=== PATIENT | female | born 1955 | race Caucasian/White ===

== ENCOUNTER 2023-08-27 21:18 | Inpatient (IN) | payer MEDICARE, MEDICAID, SELFPAY ==
--- NOTE | ~2023-08-27 | CT_ITS ---
EXAMINATION: CTA brain carotid DATE: 08/27/2023 21:40 INDICATION: Left facial weakness. TECHNIQUE: Computed tomographic angiography (CTA) of the head was performed with 100 mL Omnipaque-350 intravenous contrast. CTA of the neck was performed with intravenous contrast. Automated exposure co ntrol and iterative reconstruction technique were employed. The dose-length product was 1164.79 mGy-c m. Maximum intensity projection and volume rendered 3D-reconstructions were created by the [facility] st on a separate workstation. COMPARISON: Head CT 08/27/2023 FINDINGS: HEAD CTA: There are scattered areas of low attenuation in the cerebral white matter. There is an old lacunar infarct in the sweta. There is no intracranial hemorrhage, acute infarction, or abnormal intra cranial mass lesion. The ventricles are normal in size. The orbits are normal. The mastoid air cells are normal. The paranasal sinuses are clear. The vertebral arteries are codominant. There is no signi ficant stenosis of basilar artery or the posterior cerebral arteries. The posterior communicating art eries are normal. There is no significant stenosis of the intracranial internal carotid arteries or a nterior or middle cerebral arteries. Anterior communicating artery is normal. There is no aneurysm. NECK CTA: There are changes of right hemithyroidectomy. There are no pathologically enlarged lymph no karie. There is no significant stenosis of the vertebral arteries. There is plaque in the proximal inte rnal carotid arteries. There is 0% stenosis of the proximal right internal carotid artery relative to normal distal artery lumen diameter (NASCET criteria). There is 0% stenosis of the proximal left int ernal carotid artery relative to normal distal artery lumen diameter. There is severe cervical spondy losis. IMPRESSION: 1. Extensive nonspecific cerebral white matter disease, which likely represents chronic small vessel ischemic disease. 2. Old lacunar infarct in the sweta. 3. No aneurysm or significant intracranial arterial stenosis. 4. 0% stenosis of the proximal internal carotid arteries relative to normal distal artery lumen diame ters (NASCET criteria). Reviewed, dictated and finalized at location E. IMPRESSION: 1. Extensive nonspecific cerebral white matter disease, which likely represents chronic small vessel ischemic disease. 2. Old lacunar infarct in the sweta. 3. No aneurysm or significant intracranial arterial stenosis. 4. 0% stenosis of the proximal internal carotid arteries relative to normal dis milan artery lumen diameters (NASCET criteria).
--- NOTE | ~2023-08-27 | CT_ITS ---
EXAMINATION: CT brain wo con DATE: 08/27/2023 21:28 INDICATION: Left facial weakness. Confusion. TECHNIQUE: Computed tomography (CT) of the head was performed without intravenous contrast. The mA wa s adjusted according to patient size. Iterative reconstruction technique was employed. The dose-lengt h product was 681.00 mGy-cm. COMPARISON: None FINDINGS: There are scattered areas of low attenuation in the cerebral white matter. There is an old lacunar infarct in the sweta. There is no intracranial hemorrhage, acute infarction, or abnormal intra cranial mass lesion. The ventricles are normal in size. The orbits are normal. There is mild mucosal thickening in the paranasal sinuses. There is a small right mastoid effusion. IMPRESSION: 1. Extensive nonspecific cerebral white matter disease, which likely represents chronic small vessel ischemic disease. 2. Old lacunar infarct in the sweta. Reviewed, dictated and finalized at location E.
--- NOTE | ~2023-08-27 | XR_ITS ---
EXAMINATION: XR chest 1V portable DATE: 08/27/2023 21:54 INDICATION: Facial weakness. TECHNIQUE: A single frontal view of the chest was obtained. COMPARISON: None. FINDINGS: There is no pneumonia, pleural effusion, or pneumothorax. The heart size is normal. An elec tronic implant overlies left chest. 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 IMPRESSION: 1. No acute cardiopulmonary disease. Reviewed, dictated and finalized at location E.
--- NOTE | 2023-08-27 21:20 | ED.NEUROSD ---
HPI - Neuro Symptoms/Deficit General Chief Complaint: Suspected CVA Stated Complaint: r/o cva Time Seen by Provider: 08/27/23 21:20 History of Present Illness HPI Narrative: Patient is a 68-year-old female with a history of hypertension, DAISY, diabetes, TIA presenting as a stroke alert. She is coming from a nursing facility. They stated that she started to act abnormally approximately 4 hours ago. The symptoms worsened until about 90 minutes ago when they noticed a left-sided facial droop so they called EMS. Patient continues to have mild left-sided facial droop but otherwise denies complaints. No new numbness or weakness. States that her speech sounds normal. Her only complaint is feeling weak all over her entire body. Related Data Home Medications Medication Instructions Recorded Confirmed acetaminophen 325 mg tablet 650 mg PO Q6H PRN Headache 08/28/23 09/03/23 aspirin 81 mg tablet,delayed 81 mg PO DAILY 08/28/23 09/03/23 release (Adult Low Dose Aspirin) atorvastatin 10 mg tablet 10 mg PO HS 08/28/23 09/03/23 cholecalciferol (vitamin D3) 25 25 mcg PO DAILY 08/28/23 09/03/23 mcg (1,000 unit) tablet exenatide 10 mcg/dose(250 10 mcg subcut BID 08/28/23 09/03/23 mcg/mL)2.4 mL subcutaneous pen injector (Taodyne) furosemide 20 mg tablet 20 mg PO DAILY 08/28/23 09/03/23 levothyroxine 75 mcg tablet 75 mcg PO DAILY 08/28/23 09/03/23 lisinopril 20 mg tablet 20 mg PO DAILY 08/28/23 09/03/23 melatonin 5 mg tablet 5 mg PO HS 08/28/23 09/03/23 metformin 500 mg tablet,extended 500 mg PO DAILY 08/28/23 09/03/23 release 24 hr polyethylene glycol 3350 17 17 g PO DAILY 08/28/23 09/03/23 gram/dose oral powder (Miralax) Allergies Allergy/AdvReac Type Severity Reaction Status Date / Time tramadol Allergy Other Verified 08/27/23 21:55 Review of Systems Review of Systems: ROS unobtainable: Yes unobtainable due to medical condition and other (Due to acuity of condition) PMFSH Family History Family History Other Unknown family medical history Social History Social History Smoking status: Never smoker Alcohol intake: never Substance use: never Lack of Transportation: No Lack of Food: Never True Current Housing: I Have Housing Concerned About Future Housing: No Difficulty Paying Gas/Electric Bills: No Difficulty Paying for Meds: No Currently Unemployed: No Education: High School Diploma/GED Difficulty w/ Childcare or Family Care: No Spiritual care concerns: No Exam Narrative: GENERAL: Chronically ill-appearing, no acute distress HEAD: Normocephalic, atraumatic. EYES: PERRLA and EOMI. ENT: Slight left-sided facial droop noted NECK: Supple. CHEST: No respiratory distress. HEART: Regular rate and rhythm ABDOMEN: Soft, nontender, nondistended EXTREMITIES: Right upper extremity ROM limited secondary to prior rotator cuff injury SKIN: Warm, dry NEURO: Mild left-sided facial droop noted though smiling appears intact, 5 out of 5 strength in left upper extremity and bilateral lower extremities; right upper extremity strength unable to be assessed due to rotator cuff injury which is old; no pronator drift, no dysarthria or aphasia PSYCH: Normal mood and affect. Course Vital Signs Vital signs: Vital Signs Temperature 98 F 08/27/23 21:44 Pulse Rate 104 H 08/27/23 21:44 Respiratory Rate 18 08/27/23 21:44 Oxygen Delivery Room Air 08/27/23 21:44 Temperature 97.0 F L 08/30/23 14:00 Pulse Rate 64 08/30/23 16:00 Respiratory Rate 18 08/30/23 14:00 Blood Pressure 155/77 H 08/30/23 14:00 Pulse Oximetry 96 08/30/23 14:00 Oxygen Delivery Room Air 08/30/23 09:10 MDM - Neuro Symptoms/Deficit MDM Narrative Medical decision making narrative: Patient is a 68-year-old female presenting as a stroke alert due to left-sided facial droop. Vitals st
--- NOTE | 2023-08-27 21:22 | ECG_ITS ---
Measurements Intervals [place] Rate: 100 P: 48 OK: 161 QRS: -23 QRSD: 86 T: 33 QT: 341 QTc: 442 Interpretive Statements SINUS TACHYCARDIA BORDERLINE LEFT AXIS DEVIATION [QRS AXIS < -20] BORDERLINE ECG NO PREVIOUS ECG AVAILABLE FOR COMPARISON Electronically Signed On 08-28-2023 17:11:41 CDT by Daniel Cary M.D.
[2023-08-27 21:44] VITALS: PULSE 104; RESP 18; TEMP 36.6
[2023-08-27 21:45] LABS: Estimated Glomerular Filt Rate > 60
[2023-08-27 21:45] LABS: Basophils Percent Auto 0.1 % (0.2-1.2); Eosinophils Absolute Auto 0.1 K/mm3 (0-0.3); Eosinophils Percent Auto 0.7 % (0-4.4); Hematocrit 36.6 % (37.0-47.0); Hemoglobin 11.4 g/dL (12.0-15.0); Immature Granulocyte Absolute 0.06 K/mm3 (0.00-0.031); Immature Granulocyte Percent A 0.4 % (0-0.5); Lymphocytes Absolute Auto 0.76 K/mm3 (0.9-3.2); Lymphocytes Percent Auto 5.3 % (18.3-44.2); Mean Corpuscular HGB Conc 31.1 g/dl (32-36); Mean Corpuscular Volume 86.7 fl (80-100); Mean Platelet Volume 9.8 fl (7.4-10.4); Monocytes Absolute Auto 0.6 K/mm3 (0.1-0.6); Monocytes Percent Auto 4.2 % (2.6-8.5); Neutrophils Absolute Auto 12.7 K/mm3 (1.3-6.7); Neutrophils Percent Auto 89.3 % (45.5-73.1); Platelet Count Result 243 k/mm3 (150-375); Red Blood Count 4.22 M/mm3 (4.2-5.4); Red Cell Distribution Width 13.5 % (11.5-14.5); White Blood Count 14.3 K/mm3 (4.5-10.0)
[2023-08-27 21:47] VITALS: PULSE 105
[2023-08-27 21:55] LABS: Partial Thromboplastin Time 24.9 SECONDS (22.3-36.8); Prothrombin Time 13.8 Seconds (11.1-14.7)
[2023-08-27 21:57] VITALS: PULSE 104; RESP 23; O2SAT 97
[2023-08-27 22:00] LABS: Alanine Aminotransferase 15 U/L (6-35); Albumin Level 4.1 g/dL (3.5-5.1); Alkaline Phosphatase 127 U/L (38-126); Anion Gap 7 mmol/L (8-16); Aspartate Amino Transferase 28 U/L (14-36); Bilirubin,Total 0.7 mg/dL (0.2-1.3); Blood Urea Nitrogen 25 mg/dL (7-17); Calcium 9.2 mg/dL (8.4-10.2); Carbon Dioxide 23 mmol/L (22-30); Chloride 104 mmol/L (98-107); Estimated CRCL calculation 86 ml/min; Estimated Glomerular Filt Rate > 60; Glucose 243 mg/dL (65-110); Lipase 83 U/L (23-300); Magnesium 1.8 mg/dL (1.6-2.3); Potassium 4.3 mmol/L (3.4-5.0); Sodium 134 mmol/L (137-145)
[2023-08-27 22:07] LABS: Troponin I < 0.012 ng/mL (0.000-0.034)
[2023-08-27 22:16] LABS: Appearance Urine Cloudy (Clear); Bacteria Urine 4+ /hpf; Bilirubin Urine Negative (Negative); Blood Urine Negative (Negative); Color Urine Yellow (Yellow); Glucose Urine UA Negative (Negative); Ketones Urine Trace mg/dL (Negative); Leukocyte Esterase Ur 1+ LEU/UL (Negative); Nitrate Urine Positive (Negative); Non Pathogenic Casts 0-2; Protein Urine Negative (Negative); RBC Urine 0-2 /hpf (0-2); Specific Grav Ur 1.033 (1.001-1.035); Squamous Epithelial Cell Urine None seen /hpf (Few); WBC Urine 21-50 /hpf; pH Urine 5.5 (5.0-9.0)
[2023-08-27 22:21] LABS: Add Urine Microscopic? YES
[2023-08-27 22:36] LABS: Influenza A QL RT-PCR Negative (Negative); Influenza B QL RT-PCR Negative (Negative); SARS-CoV-2 RNA PCR Negative (Negative)
[2023-08-27] MEDS: SODIUM CHLORIDE 0.9% IV 1,000 ML 999 ML IV CONT (22:56)
[2023-08-27 22:58] VITALS: BP 163/75; PULSE 93; RESP 22; O2SAT 100
[2023-08-27] MEDS: cefTRIAXone 2 GM/NS 100 ML 2 GM/100 ML BAG IVPB (23:13)
--- NOTE | 2023-08-27 23:14 | PC.NURSE ---
Unable to retrieve patient's blood for cultures. Notified Dr. Enriquez EDP who advised to cancel the order.
[2023-08-27] MEDS: ACETAMINOPHEN 500 MG TABLET 1000 MG PO (23:15)
[2023-08-27 23:54] VITALS: BP 154/74; PULSE 87; RESP 15; TEMP 36.6; O2SAT 99
[2023-08-28] VITALS (10 sets, daily range): BP systolic 109–144; BP diastolic 45–72; PULSE 64–92; RESP 14–18; TEMP 36.2–36.6; O2SAT 95–100
--- NOTE | 2023-08-28 00:31 | ADMGEN ---
This patient, Chika Thompson, was admitted to [facility] Surg Room 332-01. Patient/family oriented to hospital policies and general routines including ID bracelet, bed and alarms, visiting hours, pain management, procedures, bathroom and other care routines, personal items, smoking policy, room service/diet, and visiting hours. Information on how to activate the Rapid Response Team has been discussed. Patient/Family are encouraged to report perceived risks to care and to ask questions if they do not understand what they are told or what they should do.
[2023-08-28 01:21] LABS: Troponin I < 0.012 ng/mL (0.000-0.034)
[2023-08-28 04:43] LABS: Troponin I < 0.012 ng/mL (0.000-0.034)
[2023-08-28] MEDS: ASPIRIN 81 MG ENTERIC TABLET PO (10:52)
[2023-08-28] MEDS: CHOLECALCIFEROL 1,000 UNITS TABLET 1000 UNITS PO (10:52)
[2023-08-28] MEDS: LEVOTHYROXINE SODIUM 75 MCG TABLET PO (10:53)
[2023-08-28] MEDS: metFORMIN HCL XR 500 MG TAB.SR.24H PO (10:53)
[2023-08-28] MEDS: FUROSEMIDE 20 MG TABLET PO (10:53)
[2023-08-28] MEDS: lisinopriL 20 MG TABLET PO (10:53)
--- NOTE | 2023-08-28 10:56 | PM.IMHP ---
H&P: HPI History of Present Illness Date/Time: 08/28/23 10:56 Chief Complaint: Patient is a 68-year-old female with a history of hypertension, DAISY, diabetes, TIA presenting as a stroke alert.? She is coming from a nursing facility.? They stated that she started to act abnormally approximately 4 hours ago.? The symptoms worsened until about 90 minutes ago when they noticed a left-sided facial droop so they called EMS.? Patient continues to have mild left-sided facial droop but otherwise denies complaints.? No new numbness or weakness.? States that her speech sounds normal.? Her only complaint is feeling weak all over her entire body. Review of Systems Review of Systems: ROS unobtainable: Yes unobtainable due to medical condition and other (Due to acuity of condition) [facility] Family History Family History Other Unknown family medical history Social History Social History Smoking status: Never smoker Alcohol intake: never Substance use: never Lack of Transportation: No Lack of Food: Never True Current Housing: I Have Housing Concerned About Future Housing: No Difficulty Paying Gas/Electric Bills: No Difficulty Paying for Meds: No Currently Unemployed: No Education: High School Diploma/GED Difficulty w/ Childcare or Family Care: No Spiritual care concerns: No Meds Home Medications and Allergies Home Medications Medication Instructions Recorded Confirmed Type acetaminophen 325 mg tablet 650 mg PO PRN PRN Headache 08/28/23 08/28/23 History aspirin 81 mg tablet,delayed 81 mg PO DAILY 08/28/23 08/28/23 History release (Adult Low Dose Aspirin) atorvastatin 10 mg tablet 10 mg PO HS 08/28/23 08/28/23 History cholecalciferol (vitamin D3) 25 25 mcg PO DAILY 08/28/23 08/28/23 History mcg (1,000 unit) tablet exenatide 10 mcg/dose(250 10 mcg subcut BID 08/28/23 08/28/23 History mcg/mL)2.4 mL subcutaneous pen injector (Byetta) furosemide 20 mg tablet 20 mg PO DAILY 08/28/23 08/28/23 History levothyroxine 75 mcg tablet 75 mcg PO DAILY 08/28/23 08/28/23 History lisinopril 20 mg tablet 20 mg PO DAILY 08/28/23 08/28/23 History melatonin 5 mg tablet 5 mg PO HS 08/28/23 08/28/23 History metformin 500 mg tablet,extended 500 mg PO DAILY 08/28/23 08/28/23 History release 24 hr polyethylene glycol 3350 17 17 g PO DAILY 08/28/23 08/28/23 History gram/dose oral powder (Miralax) Allergies Allergy/AdvReac Type Severity Reaction Status Date / Time tramadol Allergy Other Verified 08/27/23 21:55 Vital Signs Vital Signs - 24 hr 08/27/23 21:44 08/27/23 21:47 08/27/23 21:57 Temperature 98 F Pulse Rate 104 H 105 H 104 H Respiratory Rate 18 23 H Blood Pressure Pulse Oximetry 97 Oxygen Delivery Room Air 08/27/23 22:58 08/27/23 23:54 08/28/23 00:30 Temperature 98 F 97.9 F Pulse Rate 93 87 92 Respiratory Rate 22 H 15 14 Blood Pressure 163/75 H 154/74 H 144/72 H Pulse Oximetry 100 99 100 Oxygen Delivery 08/28/23 04:00 08/28/23 06:00 08/28/23 08:09 Temperature 97.2 F L Pulse Rate 70 74 Respiratory Rate 14 Blood Pressure 109/45 L Pulse Oximetry 98 95 Oxygen Delivery Room Air Exam Narrative: GENERAL: Chronically ill-appearing, no acute distress HEAD: Normocephalic, atraumatic. EYES: PERRLA and EOMI. ENT: Slight left-sided facial droop noted NECK: Supple. CHEST: No respiratory distress. HEART: Regular rate and rhythm ABDOMEN: Soft, nontender, nondistended EXTREMITIES: Right upper extremity ROM limited secondary to prior rotator cuff injury SKIN: Warm, dry NEURO: Mild left-sided facial droop noted though smiling appears intact, 5 out of 5 strength in left upper extremity and bilateral lower extremities; right upper extremity strength unable to be assessed due to rotator cuff injury which is old; no pronator drift, no dysarthria or aph
[2023-08-28] MEDS: cefTRIAXone 2 GM/NS 100 ML 2 GM/100 ML BAG IVPB (21:17)
[2023-08-28] MEDS: ATORVASTATIN 10 MG TABLET PO (21:18)
[2023-08-28] MEDS: MELATONIN 5 MG TABLET PO (21:18)
[2023-08-29] VITALS (9 sets, daily range): BP systolic 110–144; BP diastolic 47–62; PULSE 62–72; RESP 16–20; TEMP 36.2–37.7; O2SAT 95–99
[2023-08-29] MEDS: LEVOTHYROXINE SODIUM 75 MCG TABLET PO (06:01)
[2023-08-29] MEDS: ASPIRIN 81 MG ENTERIC TABLET PO (09:03)
[2023-08-29] MEDS: lisinopriL 20 MG TABLET PO (09:03)
[2023-08-29] MEDS: CHOLECALCIFEROL 1,000 UNITS TABLET 1000 UNITS PO (09:03)
[2023-08-29] MEDS: metFORMIN HCL XR 500 MG TAB.SR.24H PO (09:03)
[2023-08-29] MEDS: FUROSEMIDE 20 MG TABLET PO (09:03)
[2023-08-29] MEDS: ACETAMINOPHEN 325 MG TABLET 650 MG PO (11:39)
--- NOTE | 2023-08-29 11:46 | PM.IMPN ---
Progress Note: A&P Assessment and Plan (1) Debility: Code(s): R53.81 - Other malaise Status: Acute (2) Arthritis of knee: Code(s): M17.10 - Unilateral primary osteoarthritis, unspecified knee Status: Acute (3) Diabetes mellitus: Qualifiers: Diabetes mellitus type: type 2 Diabetes mellitus termite helper insulin use: without termite helper use Diabetes mellitus complication status: with neurologic complications Diabetes mellitus complication detail: with polyneuropathy Qualified Code(s): E11.42 - Type 2 diabetes mellitus with diabetic polyneuropathy Code(s): E11.9 - Type 2 diabetes mellitus without complications Status: Acute (4) Hypothyroidism (acquired): Code(s): E03.9 - Hypothyroidism, unspecified Status: Acute (5) DAISY on CPAP: Code(s): G47.33 - Obstructive sleep apnea (adult) (pediatric) Status: Acute (6) UTI (urinary tract infection): Code(s): N39.0 - Urinary tract infection, site not specified Status: Acute Assessment and Plan: abx, feeling better already Subjective Date/time seen: 08/29/23 11:46 Interval history: No complaints Exam Narrative: GENERAL: Chronically ill-appearing, no acute distress HEAD: Normocephalic, atraumatic. EYES: PERRLA and EOMI. ENT: Slight left-sided facial droop noted NECK: Supple. CHEST: No respiratory distress. HEART: Regular rate and rhythm ABDOMEN: Soft, nontender, nondistended EXTREMITIES: Right upper extremity ROM limited secondary to prior rotator cuff injury SKIN: Warm, dry NEURO: Mild left-sided facial droop noted though smiling appears intact, 5 out of 5 strength in left upper extremity and bilateral lower extremities; right upper extremity strength unable to be assessed due to rotator cuff injury which is old; no pronator drift, no dysarthria or aphasia PSYCH: Normal mood and affect. Objective Data Vital Signs Vital Signs: Vital Signs - 24 hr 08/28/23 14:00 08/28/23 15:47 08/28/23 12:00 Temperature 97.2 F L Pulse Rate 72 82 Respiratory Rate 18 Blood Pressure 129/55 L Pulse Oximetry 99 Oxygen Delivery CPAP 08/28/23 16:00 08/28/23 22:00 08/28/23 20:15 Temperature 97.5 F L Pulse Rate 64 75 72 Respiratory Rate 16 Blood Pressure 143/64 H Pulse Oximetry 98 Oxygen Delivery 08/28/23 20:15 08/29/23 00:00 08/28/23 22:10 Temperature Pulse Rate 75 72 Respiratory Rate 16 Blood Pressure Pulse Oximetry 98 Oxygen Delivery CPAP CPAP 08/29/23 03:43 08/29/23 04:00 08/29/23 06:00 Temperature 97.2 F L Pulse Rate 70 72 Respiratory Rate 16 Blood Pressure 110/47 L Pulse Oximetry 95 Oxygen Delivery CPAP Intake/Output Intake/Output: Intake & Output 08/26/23 08/27/23 08/28/23 08/29/23 23:59 23:59 23:59 23:59 Intake Total 1100 1718 150 Output Total 1100 400 Balance 1100 618 -250 Meds/Results Medications: Active Medications Generic Name Dose Route Start Last Admin Trade Name Freq PRN Reason Stop Dose Admin Acetaminophen 650 mg 08/29/23 11:14 08/29/23 11:39 Acetaminophen 325 Mg Tablet PO 650 mg Q6H PRN Administration Mild Pain (1-3) or Fever Aspirin 81 mg 08/28/23 09:00 08/29/23 09:03 Aspirin 81 Mg Enteric Tablet PO 81 mg DAILY MARY Administration Atorvastatin Calcium 10 mg 08/28/23 21:00 08/28/23 21:18 Atorvastatin 10 Mg Tablet PO 10 mg HS MARY Administration Furosemide 20 mg 08/28/23 09:00 08/29/23 09:03 Furosemide 20 Mg Tablet PO 20 mg DAILY MARY Administration Ceftriaxone Sodium 2 gm in 100 mls @ 200 mls/hr 08/28/23 22:00 08/28/23 21:17 Rocephin 2 Gm/Ns 100 Ml IVPB 200 mls/hr Q24H MARY Administration Levothyroxine Sodium 75 mcg 08/28/23 11:30 08/29/23 06:01 Levothyroxine Sodium 75 Mcg Tablet PO 75 mcg DAILY@0630 MARY Administration Lisinopril 20 mg 08/28/23 09:00 08/29/23 09:03 Lisinopril 20 Mg Tablet PO 20 mg DEMI
[2023-08-29] MEDS: ATORVASTATIN 10 MG TABLET PO (21:46)
[2023-08-29] MEDS: MELATONIN 5 MG TABLET PO (21:50)
[2023-08-29] MEDS: cefTRIAXone 2 GM/NS 100 ML 2 GM/100 ML BAG IVPB (21:51)
[2023-08-30] VITALS (8 sets, daily range): BP systolic 132–155; BP diastolic 59–77; PULSE 58–64; RESP 16–18; TEMP 36.1–36.4; O2SAT 95–98
[2023-08-30] MEDS: LEVOTHYROXINE SODIUM 75 MCG TABLET PO (05:46)
[2023-08-30] MEDS: metFORMIN HCL XR 500 MG TAB.SR.24H PO (09:06)
[2023-08-30] MEDS: ACETAMINOPHEN 325 MG TABLET 650 MG PO (09:07)
[2023-08-30] MEDS: lisinopriL 20 MG TABLET PO (09:07)
[2023-08-30] MEDS: FUROSEMIDE 20 MG TABLET PO (09:07)
[2023-08-30] MEDS: ASPIRIN 81 MG ENTERIC TABLET PO (09:08)
[2023-08-30] MEDS: polyethylene glycoL 3350 17 GM POWD.PACK PO (09:08)
[2023-08-30] MEDS: CHOLECALCIFEROL 1,000 UNITS TABLET 1000 UNITS PO (09:08)
--- NOTE | 2023-08-30 12:46 | PM.DS ---
DS: Admitting Diagnosis Discharge Date August 30, 2023 Admitting Diagnosis UTI DS: Discharge Diagnosis Discharge Diagnosis (1) Debility: Code(s): R53.81 - Other malaise Status: Acute (2) Arthritis of knee: Code(s): M17.10 - Unilateral primary osteoarthritis, unspecified knee Status: Acute (3) Diabetes mellitus: Qualifiers: Diabetes mellitus type: type 2 Diabetes mellitus director long term care insulin use: without retirement use Diabetes mellitus complication status: with neurologic complications Diabetes mellitus complication detail: with polyneuropathy Qualified Code(s): E11.42 - Type 2 diabetes mellitus with diabetic polyneuropathy Code(s): E11.9 - Type 2 diabetes mellitus without complications Status: Acute (4) Hypothyroidism (acquired): Code(s): E03.9 - Hypothyroidism, unspecified Status: Acute (5) DAISY on CPAP: Code(s): G47.33 - Obstructive sleep apnea (adult) (pediatric) Status: Acute (6) UTI (urinary tract infection): Code(s): N39.0 - Urinary tract infection, site not specified Status: Acute Assessment and Plan: abx, feeling better already DS: Summary Hospital Course Hospital Course: 68-year-old female came in for altered mental status and UTI. Started on IV antibiotics and improved significantly almost immediately. Doing much better and back to baseline. Oral antibiotics on discharge Time Spent with Patient Time attestation: Total time spent providing and/or coordinating discharge services: Exam Narrative: GENERAL: Chronically ill-appearing, no acute distress HEAD: Normocephalic, atraumatic. EYES: PERRLA and EOMI. ENT: Slight left-sided facial droop noted NECK: Supple. CHEST: No respiratory distress. HEART: Regular rate and rhythm ABDOMEN: Soft, nontender, nondistended EXTREMITIES: Right upper extremity ROM limited secondary to prior rotator cuff injury SKIN: Warm, dry NEURO: Mild left-sided facial droop noted though smiling appears intact, 5 out of 5 strength in left upper extremity and bilateral lower extremities; right upper extremity strength unable to be assessed due to rotator cuff injury which is old; no pronator drift, no dysarthria or aphasia PSYCH: Normal mood and affect. Discharge Plan Discharge Attending physician on discharge: Dillon Sr Discharging Clinician: Dillon Sr Patient Disposition: Home, Self-Care Activity: as tolerated Diet: as tolerated Patient Instructions: Antibiotic Form Stand Alone Forms: General Discharge Information Follow-up/Referrals: Onelia Abbott MD [Primary Care Provider] - Discharge Medications: New cefdinir 300 mg capsule 300 mg PO Q12H Qty: 10 0RF Continued atorvastatin 10 mg Tablet 10 mg PO HS lisinopril 20 mg Tablet 20 mg PO DAILY aspirin [Adult Low Dose Aspirin] 81 mg Tablet,Delayed Release (Dr/Ec) 81 mg PO DAILY levothyroxine 75 mcg Tablet 75 mcg PO DAILY furosemide 20 mg Tablet 20 mg PO DAILY polyethylene glycol 3350 [Miralax] 17 gram/dose Powder 17 g PO DAILY metformin 500 mg Tablet Extended Release 24 Hr 500 mg PO DAILY Byetta 10 mcg/dose(250 mcg/mL) 2.4 mL Pen Injector 10 mcg SUBCUT BID cholecalciferol (vitamin D3) 25 mcg (1,000 unit) Tablet 25 mcg PO DAILY melatonin 5 mg Tablet 5 mg PO HS acetaminophen 325 mg Tablet 650 mg PO Q6H PRN (Reason: Headache) Date of admission: 08/28/23 15:57 Primary Care Provider: Onelia Abbott Admitting Provider: Gayathri Nj V. Attending physician on admission: Gayathri Nj V. Condition: Stable
[2023-08-30 14:40] LABS: SARS-CoV-2 RNA PCR Negative (Negative)
--- NOTE | 2023-08-30 15:39 | PC.NURSE ---
This RN gave report to Kim VIRK at [facility] at 1539. Kim VIRK agreed to receive the pt and continue care.
[2023-09-02 11:36] LABS: Glucose Point of Care 250 mg/dl (65-105)
== END 2023-08-30 18:40 | DRG 690 ==
LOC: ANHED 22:08 → ANH3MEDSUR 23:22
PROVIDERS: Admitting Provider Internal Medicine; Emergency Provider Emergency Medicine; PCP Family Medicine; Visit Provider Chiropractor
DX: N39.0 Urinary tract infection, site not specified (principal); Z11.52 Encounter for screening for COVID-19; E11.42 Type 2 diabetes mellitus with diabetic polyneuropathy; G47.33 Obstructive sleep apnea (adult) (pediatric); E03.9 Hypothyroidism, unspecified; M17.10 Unilateral primary osteoarthritis, unspecified knee
CPT/HCPCS: 36415; 70450; 70496; 70498; 71045; 80053; 81001; 82948; 83690; 83735; 84484; 85025; 85610; 85730; 87077; 87086; 87186; 87635; 87636; 93005; 96365; 99285; A9270; G0378; J0696; J7030; Q9967

== ENCOUNTER 2025-05-05 13:53 | Outpatient (CLI) | payer MEDICARE, MEDICAID, SELFPAY ==
--- NOTE | ~2025-05-05 | US_ITS ---
EXAM: PELVIC ULTRASOUND, transabdominal only HISTORY: N95.0 - Postmenopausal bleeding 5 para 3 No exogenous hormone replacement. No tamoxifen therapy. COMPARISON: None. FINDINGS: UTERUS: 9.2 x 3.5 x 4.4 cm. The uterus is anteverted and anteflexed. The endometrial complex is thickened and measures 11 mm. RIGHT OVARY: Despite prolonged interrogation, the right ovary was not visualized LEFT OVARY: Despite prolonged interrogation, the left ovary was not visualized No free fluid is identified within the pelvis. IMPRESSION: Thickened endometrial complex for which endometrial biopsy versus direct visualization is recommended . Reviewed, dictated and finalized at location A. IMPRESSION: Thickened endometrial complex for which endometrial biopsy versus direct visual ization is recommended.
== END 2025-05-05 13:54 | disposition home or self-care (01) ==
LOC: MICIMG 13:56
PROVIDERS: PCP Student in an Organized Health Care Education/Training Program; Visit Provider Student in an Organized Health Care Education/Training Program
DX: N95.0 Postmenopausal bleeding (principal)
CPT/HCPCS: 76856

== ENCOUNTER 2025-06-28 01:04 | Day surgery (SDC) | payer MEDICARE, MEDICAID, SELFPAY ==
[2025-06-16 15:24] VITALS: BMI 49.5
--- NOTE | 2025-06-16 15:58 | PC.NURSE ---
Report to the Outpatient Waiting Room, entrance under the green pavilion located off [facility], at time __0600am on date _06/28/25 . Planned Procedure Time: __0730am .? Time changes happen often and if your time is changed the preop area will call you the afternoon before. - You and your visitor will be asked to self-screen and do not enter if you have any COVID symptoms. Please call surgeon if you need to reschedule. - A mask is optional within the hospital at this time. Patients may have clear liquids (water, carbonated beverages, clear teas, apple juice) until 3 hours prior to surgery with a maximum of 20 ounces. - No food from midnight until time of surgery and no smoking, or chewing tobacco (or any form of nicotine). No chewing gum, candy or mints. (0430am) Take only the following medications with a SIP of water on the morning of surgery: ___Levothyroxine DO NOT STOP ANY OF YOUR OTHER PRESCRIPTION MEDICATIONS PRIOR TO SURGERY EXCEPT THE FOLLOWING Hold all vitamins and supplements for 3 days per anesthesiologist. Medications to discontinue per physician None Date to take last dose None Please no make-up, nail khmer, hairspray, perfume, deodorant, or body powder the day of surgery.? No jewelry (including any body piercings) or valuables the day of surgery, leave them at home.? Please take a shower or bath the night before, or the morning of, surgery with an antibacterial soap.? Wear comfortable, loose fitting clothing.? - Jewelry must be removed prior to entering the operating room.? Rings and piercings that are not removed may be cut off. - The hospital will not accept responsibility for valuables.? - Please leave all valuables, including medications, at home the day of surgery. If you are going home after surgery, a licensed fuel oil truck driver must drive you home.? - NO public transportation without another adult if you receive anesthesia. - We recommend that an adult stay with you for 24 hours following discharge. - We also recommend that you do not drive, make important decision, drink alcoholic beverages, or take any drugs that were not prescribed by your health care provider for at least 24 hours after your discharge time. Follow any additional instructions given to you from your surgeon. Telephone instructions given to _Faxed to RN at [facility], Alon Ramos, also Lab orders for H & H and BMP to be done [facility] Preop faxed to [phone]___[id number] aware and asked if any additional questions and then verbalized understanding. Patient advised to call surgeon office or pre surgery nurse liaison [phone] if any additional questions.
--- OUTSIDE RECORDS SUMMARY | 2025-06-28 01:07 | XMS_ITS | Clinical Summary ---
Author Organization [facility] Address [address] [place] [address] Care Team Providers Care Adjusto Writer Operator Name Role Phone KorinJohn Primary Care Provider [phone] Allergies Active Allergy Reactions Criticality Noted Date Comments Imiquimod Rash Low 07/07/2012 Sulfa Antibiotics Hallucinations,Other (see comment),Unknown 10/16/2019 Tramadol Hallucinations 12/17/2020 Medications BYETTA 10 MCG PEN 10 MCG/0.04ML injection (PEN) Inject 0.04 mLs (10 mcg total) into the skin 2 (two) times daily before meals. INJECT 0.02ML(5MCG) TWO TIMES A DAY UP TO ONE HOUR BEFORE BREAKFAST AND EVENING MEAL 9 Active levothyroxine 75 MCG tablet Take 1 tablet (75 mcg total) by mouth daily. 9 Active vitamin D3, cholecalciferol , 1000 UNIT Tab tablet Take 3 tablets (3,000 Units total) by mouth daily. Active naproxen 500 MG tablet Take 1 tablet (500 mg total) by mouth 2 (two) times daily as needed. 9 Active furosemide 20 MG tablet Take 1 tablet (20 mg total) by mouth daily. 0 Active melatonin 5 MG tablet Take 1 tablet (5 mg total) by mouth nightly at bedtime. Active metFORMIN ER 500 MG 24 hr tablet Take 1 tablet (500 mg total) by mouth daily with breakfast. Active aspirin 81 MG chewable tablet Chew 1 tablet (81 mg total) by mouth daily. 30 tablet 2 Active lisinopril (PRINIVIL) 20 MG tablet Take 1 tablet (20 mg total) by mouth daily. 2 Active docusate sodium (COLACE) 100 MG capsule Take 1 capsule (100 mg total) by mouth 2 (two) times daily as needed for Constipation. Active atorvastatin (LIPITOR) 10 MG tablet Take 1 tablet (10 mg total) by mouth nightly at bedtime. 3 Active lidocaine 4 % patch Place 1 patch onto the skin daily. Remove & Discard patch within 12 hours or as directed by MD Bueno patch 3 Active acetaminophen (TYLENOL) 325 MG tablet Take 2 tablets (650 mg total) by mouth every 4 (four) hours as needed for Pain. 30 tablet 3 Active cyanocobalamin (B-12) 1000 MCG/ML injection Inject into the muscle every 30 (thirty) days. 3 Active hydroCHLOROthia zide (HYDRODIURIL) 25 MG tablet Take 1 tablet (25 mg total) by mouth every morning. Active hydrocortisone (CORTIZONE) 1 % cream Apply topically as needed. Active diphenhydrAMINE (BENADRYL) 25 MG capsule Take 1 capsule (25 mg total) by mouth 3 (three) times daily as needed for Itching. 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 This appears to be predominantly transverse within the right humeral neck. There is comminuted fracture components lateral to the right proximal humeral shaft. Glenohumeral joint relationship appears unremarkable on each image. There is no evidence of fracture or focal bone abnormality involving the mid or distal portions of the right humerus. IMPRESSION: Right proximal humeral neck fracture. Near syncope 10/16/2019 Other chronic pain 02/02/2019 HTN, goal below 130/80 02/02/2019 Hypothyroidism (acquired) 02/02/2019 Mixed hyperlipidemia 02/02/2019 Body mass index (BMI) 45.0-49.9, adult 9 Dependence on other enabling machines and device s 02/02/2019 Other specified benign mammary dysplasias 2016 History of atypical hyperplasia of breast 2016 Morbid obesity 07/25/2016 Patellar tendinitis 05/27/2016 Osteoarthrosis of knee 03/11/2016 Knee pain 03/11/2016 Benign essential hypertension 07/09/2012 Varicose veins of lower extremity with inflammat ion 07/01/2012 Type 2 diabetes mellitus wit hout complication ([facility]) 07/01/2012 Type II diabetes mellitus wi th complication ([facility]) 05/06/2012 Skin cancer 05/06/2012 Obstructive sleep apnea syndrome 05/06/2012 Open wound of knee 05/06/2012 Esophageal reflux 05/06/2012 Hypertension Diabetes mellitus ([facility]) Cancer ([facility]) Overview (03/26/2022): SKIN Resolved Problems Problem Noted Date Diagnosed Date Resolved Date Vitamin D deficiency 07/30/2016 024 Encounter for preventive health examination 05/06/2012 07/21/2020 Encounters Date Type Department Care Team Description 06/06/2025 4:00 PM CDT Allied Health/Nurse Visit [facility], [address] [address] Prashant Melgar MD Remote Device Check 05/02/2025 4:00 PM CDT Allied Health/Nurse Visit [facility], [facility] [address] [place] [address] Prashant Melgar MD Remote Device Check 03/28/2025 4:00 PM CDT Allied Health/Nurse Visit [facility], [facility] [address] [place] [address] Dillon Aguilar MD Remote Device Check from Last 3 Months Immunizations Immunization Administration Dates Next Due Fluzone 6 Months+ Quad (0.5 mL Prefilled Syringe) 07/21/2020 Fluzone High Dose - >Age 65 (Prefilled Syringe) 08/06/2019 Influenza (Generic) 07/30/2022, 7,08/15/2014,2013 Influenza Adult (Generic) 07/21/2020,,08/06/2018,2017,07/29/2017,07/29/2017,09/05/2016,1 ,10/16/2015,10/16/2015 PFIZER COVID-19 (ORIGINAL FORMULATION, PURPLE CAP) mRNA, LNP-S, PF, 30 MCG/0.3 ML DOSE 01/12/2021,12/22/2020 Pneumococcal (Pneumovax 23) 05/08/2021, 2,12/05/2011 Pneumococcal (Prevnar 13) 01/28/2017,01/28/2017 Tdap (Generic) 03/11/2023, 2,03/07/2012,2011,11/10/2011,05/15/2009,05/15/2009 Zoster (Zostavax) [address] Unt/0.65Ml 02/02,01/30/2017,08/15/2014,2013 Family History Medical History Relation Comments Arthritis Brother 1 Heart Disease Brother 1 Hypertension Brother 1 Hypertension Brother 2 Valve Disease Brother 2 Cancer Father Diabetes Maternal Aunt CHF Maternal Grandfather Diabetes Maternal Grandmother Stroke Maternal Grandmother Arthritis Mother COPD Mother Diabetes Mother Heart Attack Mother Heart Disease Mother Hypertension Mother Kidney Disease Mother Stroke Mother Stent Cardiac Sister Relation Status Comments Brother 1 Alive Brother 2 Alive Father (Age 63) Lung Cancer/Li benny Maternal Aunt Maternal Grandfather Maternal Grandmother Mother (Age 74) Sister (Age 79) Social History Tobacco Use Types Packs/Day Years Used Date Smoking Tobacco: Never Smokeless Tobacco: Never Alcohol Use Standard Drinks/Week Comments No 0 (1 standard drink = 0.6 oz pur e alcohol) AUDIT-C Answer Date Recorded Frequency of Alcohol Consumption Never 10/16/2019 Average Number of Drinks Not on file 019 Frequency of Binge Drinking Not on file 05/2019 Comments No Sex and Gender Information Value Date Recorded Sex Assigned at Not on file Legal Sex Female 10:29 AM ORCHESTRA MUSICIAN Gender Identity Not on file Sexual Orientation Not on file Last Filed Vital Signs Vital Sign Reading Time Taken Comments Blood Pressure 136/74 10/26/2024 10:23 AM ORCHESTRA MUSICIAN Pulse 62 10/26/2024 10:23 AM ORCHESTRA MUSICIAN Temperature 36.8 C (98.2 F) 03/24/2023 7:16 PM CDT Respiratory Rate 18 03/24/2023 7:16 PM CDT Oxygen Saturation 98% 10/26/2024 10:23 AM ORCHESTRA MUSICIAN Inhaled Oxygen Concentration - - Weight 128.4 kg (283 lb) 10/26/2024 10:23 AM ORCHESTRA MUSICIAN stated Height 165.1 cm (5' 5) 10/26/2024 10:23 AM ORCHESTRA MUSICIAN Body Mass Index 47.09 10/26/2024 10:23 AM ORCHESTRA MUSICIAN Plan of Treatment Upcoming Encounters Date Type Department Care Team (Late st Contact Info) Description 07/11/2025 4:00 PM CDT Allied Health/Nurse [facility] [address] [place], [place] [id number] Prashant Melgar MD [facility] [address] [place], [place] [id number] 10/31/2025 11:00 AM ORCHESTRA MUSICIAN Office Visit [facility] [address] [place], [place] [address] Raza Schultz, CHERRY SORTER [address] [place], [place] [id number] Health Maintenance Due Date Last Done Comments Colorectal Cancer Screening Colonoscopy (10 Years) 1955 Kidney Health Evaluation 1955 Diabetes: Retinopathy Eye Exam 01/24/1972 Hepatitis C 01/24/1972 RSV Immunization or 60+ Years (1 - Risk 60-74 years 1-dose series) 2014 Zoster Vaccines (2 of 3) 03/30/2018 018, 01/30/2017, 08/15/2014, Additional history exists Annual Medicare Wellness Visit 2019 Mammogram Screening 05/26/2022 05/26/2020, 04/19/2019, 04/15/2018 Lipid Panel 01/19/2023 01/19/2022, 07/11, 01/30/2018, Additional history exists Hemoglobin A1C 09/25/2023 03/25/2023, 03/10, 01/18/2022, Additional history exists COVID-19 Vaccine ( season) 2024 01/12/2021, 12/22/2020 DTaP, Tdap and Td Vaccines (8 - Td or Tdap) 03/11/2033 03/11/2023, 03/07/2012, 03/07/2012, Additional history exists Dexa Scan (General) Completed 06/07/2020, 0 Pneumococcal Vaccine: 50+ Years Completed 05/08/2021, 01/28/2017, 01/28/2017, Additional history exists Meningococcal B Vaccine Aged Out No l onger eligible based on patient's age to complete this topic Meningococcal Vaccine Aged Out No danielle migue eligible based on patient's age to complete this topic RSV Immunizations Under 20 Months Aged Out No longer eligible based on patient's age to complete this topic Goals Goal Patient Goal Type Associated Problems Recent Progress Patient-Stated? Author Lifestyle - demonstrates correct use of assistive devices (i.e., cane, walker, shower chair) Lifestyle No Rosemary Elizondo, diamond finishing supervisor Patient/family verbalizes understanding regarding the need for SNF placement Lifestyle No Jackelyn Leary, PAN CLEANER Medical Devices Implanted Type Area Compensation Associate Device Identifier Shelf Expiration Date Model / Serial / Lot Implantable Loop Recorder-2021 Implanted:Qty: 1 on 04/05/2022 by Dillon Aguilar MD Implantable Loop Recorder Left: Chest Wall [employer] CARDIAC RHYTHM AND HEART FAILURE - DIV M 08/07/2022 [id number] / [id number] / Procedures Procedure Name Priority Date/Time Associated Diagnosis Comments HEMOGLOBIN, GLYCOSYLATED Routine 03/22/2023 11:04 AM CDT LIPID PANEL Routine 01/19/2022 5:25 AM ORCHESTRA MUSICIAN MG SCREENING W SHYANNE DAAJ DIGI Routine 04/15/2018 7:52 AM CDT Screening mammogram, encounter for from Last 3 Months or Most Recently Relevant to Health Maintenance Results * (ABNORMAL) HEMOGLOBIN, GLYCOSYLATED (03/22/2023 11:04 AM CDT) HGB A1C 6.3(H) <5.7 % 03/22/2023 12:08 PM CDT [facility] Comment: ADA GUIDELINES 2010 5.7 TO 6.4% INCREASED RISK OF DIABETES > OR = 6.5% CONSISTENT WITH DIABETES ESTIMATED AVG GLUCOSE 134 mg/dL 03/22/2023 12:08 PM CDT [facility] 03/22/2023 11:0 4 AM CDT us Michelle Rouse MARKETING SUPPORT SPECIALIST LABORATORY Final Resul t [facility] [address] [place] [address], [place] [phone] * LIPID PANEL (01/19/2022 5:25 AM ORCHESTRA MUSICIAN) CHOLESTEROL 80 <200 MG/DL 01/19/2022 6:[address] [facility] TRIGLYCERIDES 82 <150 MG/DL 01/19/2022 6:[address] [facility] HDL 42 >40.0 MG/DL 01/19/2022 6:[address] [facility] LDL (CALCULATED) 22 <100 MG/DL 01/20/20 6:[address] [facility] NON HDL CHOLESTEROL 38 <130 MG/DL 01/19 6:[address] [facility] CHOL/HDL RATIO 1.9 0.0 - 4.5 01/19/2022 6:[address] [facility] VLDL CALCULATION 16 5 - 55 MG/DL 01/19/2022 6:[address] [facility] LIPID INTERPRETATION 01/19/2022 6:[address] [facility] Comment: NIH CONCENSUS REPORT RECOMMENDATIONS: ADULT CHILD LOW RISK: CHOLESTEROL <200 <170 TRIGLYCERIDE <150 --- HDL >=60 --- LDL <100 <110 BORDERLINE: CHOLESTEROL 200-239 170-199 TRIGLYCERIDE 150-199 --- HDL 40-59 --- LDL 100-159 110-129 HIGH RISK: CHOLESTEROL >=240 >=200 TRIGLYCERIDE >=200 --- HDL <40 --- LDL >=160 >=130 01/19/2022 5:25 AM ORCHESTRA MUSICIAN us Michelle Suggs MD LABORATORY Final Result [facility] [address] [place] [address], [place] [phone] * MG SCREENING W SHYANNE KRUSE (04/15/2018 7:52 AM CDT) Anatomical Region Laterality Modality Breast Bilateral Mammography 04/15/2018 8:45 AM CDT Impressions 04/15/2018 8:48 AM CDT =====IMPRESSION:===== No mammographic findings suggestive of malignancy. ASSESSMENT: ACR BI-RADS Category 2 - Benign. RECOMMENDATION: 1: Routine screening mammogram bilateral in 1 year COMMENTS: Narrative 04/15/2018 8:48 AM CDT EXAMINATION: Digital bilateral screening mammogram with 3-D tomosynthesis EXAM DATE/TIME: 04/15/2018 7:33 AM REASON FOR EXAM: Benign right biopsy 2016 COMPARISON: 03/15/2017, 12/10/2016, 10/12/2016 TECHNIQUE: Digital screening mammography of both breasts was performed in addition to 3-D Tomosynthesis technique. This study was read with the assistance of a computer-aided detection system. TISSUE DENSITY: The breast tissue is heterogeneously dense. FINDINGS: No suspicious masses, malignant appearing calcifications, skin thickening or other abnormalities are present. No significant change from the prior exam. Continued evolution of fat necrosis in the right upper breast. Jose A Mane MD MAMMO Final Result from Last 3 Months or Most Recently Relevant to Health Maintenance Insurance MEDICAID MEDICARE Advance Directives Documents on File Type Date Recorded Patient Roll Slicing Machine Tender Expl anation Advance Directives and Living Will 10/18/2019 1:55 PM 12/07/16 POA FOR HEAL TH CARE Advance Directives and Living Will 12/10/2016 POWER OF ERECTING CRANE OPERATOR * POLST (Latest Code Status on File) Date Activated Date Inactivated Comments 03/22/2023 2:29 AM 03/25/2023 12:13 AM Question Answer Comments Cardiopulmonary Resuscitatio n (CPR) If patient has no pulse and is not breathing: DO NOT Attempt Resuscitation CPR Medical Interventions when N OT in Cardiopulmonary Arrest (If patient is found with a pulse and/or is breathing): Selective Treatment - Do NOT Intubate Selective Treatment Options: OxygenSucti onCPAP/BIPAPIV FluidsIV Medications Documentation of discussion: Patient * Full Code Date Activated Date Inactivated Comments 10/17/2019 1:29 AM 10/19/2019 5:25 PM Care Teams Adjusto Writer Operator Relationship Specialty Start Date End Date John Langley DO PCP - General INTERNAL MEDICINE 10/26/24
--- OUTSIDE RECORDS SUMMARY | 2025-06-28 01:07 | XMS_ITS | Patient Health Record ---
Author Organization 1 OF Charlette santiago DPM [facility] Address [address] [facility] [address] [place] [address] Care Team Providers Care Councilman Name Role Phone Kale Gusman DO Primary Care Provider Rocky Ramírez Unavailable Allergies Allergen (clinical drug ingredient) Drug/Non Drug Allergy documented on EMR Reaction Allergy Type Onset Date Status codeine Codeine Unknown Drug Allergy Active Substance with sulfonamide structure and antibacterial mechanism of action (substance) Sulfa Antibiotics Unknown Drug Allergy Active Reason For Referral No Information Medications Medication SIG (Take, Route, Fr equency, Duration) Notes Start Date End Date Status Atorvastatin Calcium Active Byetta 10 MCG Pen Ac tive Aspir-81 Active Furosemide Active Levothyroxine Sodium Active Lisinopril Active metFORMIN HCl Active Social History Tobacco Use: Social History Observation Description Date Details (start date - stop date) Never Smoker NA - NA Tobacco Use/Smoking Question Answer Notes Are you a nonsmoker Problems Problem Type SNOMED Code ICD Code Onset Dates Problem Status W/U Status Risk Notes Problem Long-term current use of insulin (906501485) MCC (current) use of insulin (Z79.4) Active confirmed Problem Peripheral circulatory disorder associated with diabetes mellitus (464829027) Type 2 diabetes mellitus with other circulatory complications (E11.59) Active confirmed Problem Neurologic disorder associated with type II diabetes mellitus (013894746) Type 2 diabetes mellitus with other diabetic neurological complication (E11.49) Active confirmed Plan Of Treatment No Information Insurance Providers Payer Name Payer Address Payer Phone Subscriber Number Group Number Insured Name Patient Relationship to Insured Coverage Start Date Coverage End Date [employer] [address] [address] [place] [address] [id number] Chika Thompson Self - patient is the insured [facility] [address] [address] [place] [address] [id number] Chika Thompson Self - patient is the insured Medical (General) History Medical History History ICD Code arthritis, HTN, hyperlipidemia, diabetes Surgical History Surgery Date(Month/Year) MCL heart implant
--- OUTSIDE RECORDS SUMMARY | 2025-06-28 01:07 | XMS_ITS | Clinical Summary ---
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 Phone Onelia Abbott MD Primary Care Provider Allergies Active Allergy Reactions Criticality Noted Date Comments Imiquimod Unknown 07/07/2012 Other Hallucinations Medium 10/16/2019 Penicillins Rash Medium 06/03/2012 Sulfa (Sulfonamide Antibiotics) Unknown 01/30/2017 Tramadol Hallucinations,Unkno wn,Other (See comments) Medium 11/04/2019 nausea Medications blood glucose diagnostic (Contour Test Strips) stripIndications:T ype 2 diabetes mellitus without complication, without long-term current use of insulin (HCC) 1 each by other route 2 (two) times a day 100 each 11 2 Active aspirin 81 mg chewable tablet 2 Active pen needle, diabetic (UltiCare Pen Needle) 31 gauge x 1/4 needleIndications: Type 2 diabetes mellitus without complications (HCC) Use as directed twice daily 100 each 1 3 Active acetaminophen (TYLENOL) 325 mg tablet Take 2 tablets (650 mg total) by mouth every 4 (four) hours as needed for pain 3 Active atorvastatin (LIPITOR) 10 mg tabletIndications: Mixed hyperlipidemia Take 1 tablet (10 mg total) by mouth daily 30 tablet 3 Active cholecalciferol (VITAMIN D-3) 25 mcg (1,000 unit) tablet Take 3 tablets (3,000 Units total) by mouth daily 30 tablet 3 Active exenatide (Byetta) 10 mcg/dose(250 mcg/mL) 2.4 mL injectionIndicatio ns:Type 2 diabetes mellitus without complication, without long-term current use of insulin (HCC) Inject 0.04 mL (10 mcg total) under the skin 2 (two) times a day before breakfast and lunch 2.4 mL 3 Active furosemide (LASIX) 20 mg tabletIndications: Edema of lower extremity Take 1 tablet (20 mg total) by mouth daily 30 tablet 3 Active levothyroxine (SYNTHROID) 75 mcg tabletIndications: Hypothyroidism (acquired) Take 1 tablet (75 mcg total) 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 30 tablet 3 Active lisinopriL (PRINIVIL,ZESTRIL) 20 mg tabletIndications: Primary hypertension Take 1 tablet (20 mg total) by mouth daily 30 tablet 3 Active metFORMIN XR (GLUCOPHAGE XR) 500 mg 24 hr tabletIndications: Type 2 diabetes mellitus without complication, without long-term current use of insulin (HCC) Take 1 tablet (500 mg total) by mouth 2 (two) times a day before breakfast and dinner 60 tablet 3 Active polyethylene glycol (MIRALAX) 17 gram/dose powderIndications: Slow transit constipation Take 17 g by mouth daily 510 g 3 Active senna-docusate (PERICOLACE) 8.6-50 mgIndications:Slow transit constipation Take 2 tablets by mouth daily 60 tablet 3 Active Active Problems Problem Noted Date Diagnosed Date NI (acute kidney injury) 04/18/2023 Assessment & Plan (05/01/2023 5:50 PM CDT): Resolved. Creatinine returned to baseline, 0.9. Continue current Lasix dosing Assessment & Plan (04/18/2023 11:09 PM CDT): Creatinine increased to 1.5, will reduce Lasix to 20 mg daily, continue to monitor edema. Repeat labs 04/22/2023. Slow transit constipation 03/28/2023 Assessment & Plan (05/01/2023 5:49 PM CDT): Stable, continue current bowel regimen Assessment & Plan (03/28/2023 1:46 PM CDT): Much improved, continue miralax daily, senna nightly, prn suppository. Generalized weakness 03/21/2023 03/25/2023 Assessment & Plan (04/14/2023 1:39 PM CDT): With severe sarah beth ostearthritis. Pain controlled, pt making very slow progress in therapy. Was not standing well prior to admission. Encouraged to continue to be aggressive in therapy, SS to discuss review by [facility] for return once functional status improves. Assessment & Plan (03/25/2023 9:05 AM CDT): She needs PT and OT and assist w all ADL's. Her goal is to return safely to [place] W/o this SNF care and therapy she will be at a high risk of fall, injury and need to return to a higher level of care Cancer 03/11/2023 03/11/2023 Overview (03/11/2023): SKIN Hypertension 03/11/2023 03/11/2023 Assessment & Plan (05/01/2023 5:41 PM CDT): Blood pressure controlled, continue lisinopril 20 mg daily, Lasix 20 mg daily. Assessment & Plan (04/18/2023 11:12 PM CDT): Blood pressure is lower, we will decrease lisinopril to 20 mg daily in addition to reducing Lasix dose. We will continue to monitor make further dosing adjustments if needed Assessment & Plan (04/14/2023 1:40 PM CDT): BP well controlled, no dizziness with activity. Continue lisinopril and lasix Assessment & Plan (04/09/2023 8:07 PM CDT): BP stable, continue lasix, lisinopril Assessment & Plan (04/02/2023 7:43 PM CDT): Blood pressure well controlled, continue Lasix, lisinopril Assessment & Plan (03/31/2023 7:37 PM CDT): Overall controlled, continue Lasix, lisinopril. 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 Continue Lasix 20 mg daily Assessment & Plan (04/09/2023 8:03 PM CDT): Edema continues to improve, continue lasix. Lytes and renal function remain stable. F/u labs /7. Continue to participate in therapy. Monitor progress. Assessment & Plan (04/02/2023 7:37 PM CDT): Right lower extremity edema improving slowly, continue Lasix. Electrolytes and renal function stable. Repeat labs 04/09/2023 Assessment & Plan (03/31/2023 10:33 AM CDT): Edema better but not resolved. F/U labs in am, continue lasix 40mg daily. Assessment & Plan (03/28/2023 1:42 PM CDT): Increased RLE edema - has previous injury. Per pt, leg was dependant much of day. Encouraged elevation, will add compression. Increase lasix to 40mg daily, los threshold to check for DVT. Fracture of first thoracic vertebra 11/14/2020 Osteoarthritis of knee 05/09/2020 Closed fracture of proximal end of right humerus with routine healing 11/25/2019 Closed supracondylar fracture of right humerus 1 12/18/2018 Overview (12/19/2020): 10/16/19 There is right proximal humerus fracture. [...] humerus. IMPRESSION: Right proximal humeral neck fracture. Fall (on) (from) unspecified stairs and steps, initial encounter 10/17/2019 Body mass index (BMI) 45.0-49.9, adult 9 Dependence on other enabling machines and device s 02/02/2019 Hypothyroidism (acquired) 02/02/2019 Assessment & Plan (05/01/2023 5:48 PM CDT): Stable, continue current Synthroid Assessment & Plan (03/25/2023 9:03 AM CDT): Cont synthroid, ck tsh Mixed hyperlipidemia 02/02/2019 Assessment & Plan (05/01/2023 5:42 PM CDT): Stable, continue Lipitor Other chronic pain 02/02/2019 Type 2 diabetes mellitus wit hout complication, without long-term current use of insulin 02/02/2019 Assessment & Plan (05/01/2023 5:49 PM CDT): A1c 5.6, Accu-Cheks well controlled. We will discontinue sliding scale insulin as patient will resume Byetta, continue metformin 500 mg daily Assessment & Plan (04/18/2023 11:12 PM CDT): A1c 5.6, Accu-Cheks currently well controlled, metformin okay at present with GFR of 37, if reduces we will need to hold metformin, continue sliding scale insulin. Assessment & Plan (04/14/2023 1:41 PM CDT): A1c 5.6, BP remains controlled. Continue metformin and SSI. Restart Byjoslyn at discharge. Assessment & Plan (04/09/2023 8:06 PM CDT): BS 181-212, overall stable with metfomin 500mg bid, SSI. Will resume Byjoslyn at [place] Assessment & Plan (04/02/2023 7:42 PM CDT): Patient reports that 1000 mg of metformin causes increased GI upset, would like to reduce back to 500 b.i.d. encouraged patient to have family/friends bring Glenna if possible, we will continue sliding scale insulin with meals, may need to add long-acting insulin for control while at [facility]. Assessment & Plan (03/31/2023 7:36 PM CDT): Blood sugars remain elevated despite increasing metformin dosing. Patient would like to be on Glenna, advised nurse to have patient bring from home, then would be okay to use. Continue metformin, sliding scale insulin for now. Assessment & Plan (03/28/2023 1:45 PM CDT): BS elevated since Byetta not able to be given. A1c 5.6. Will increase metformin to 100mg BID, continue SSI with meals. If continues to be high, will need to start Lantus while here. Assessment & Plan (03/25/2023 9:03 AM CDT): Cont glenna and charli, follow daily bg Astigmatism 08/11/2017 03/11/2023 Other specified benign mammary dysplasias 2016 History of atypical hyperplasia of breast 2016 Vitamin D deficiency 07/30/2016 Morbid obesity 07/25/2016 History of colonic polyps 07/25/2016 Pain in right knee 03/11/2016 Disorder of refraction and accommodation 015 03/11/2023 Obstructive sleep apnea syndrome 07/01/2012 Varicose veins of lower extremity with inflammat ion 07/01/2012 Esophageal reflux 05/06/2012 Skin cancer 05/06/2012 Diabetes mellitus 12/19/2010 03/11/2023 Hyperopia 12/19/2010 03/11/2023 Presbyopia 12/19/2010 03/11/2023 Resolved Problems Problem Noted Date Diagnosed Date Resolved Date Acute kidney injury (NI) wi th acute tubular necrosis (ATN) 04/18/2023 04/18/2023 HTN, goal below 130/80 02/02/201905/01 Assessment & Plan (03/25/2023 9:02 AM CDT): Monitor bp and vs; Report variation. Cont lisinopril Benign essential hypertension 07/09/2012 05/03/2019 Immunizations Immunization Administration Dates Next Due Influenza, Quad, Adjuvantate d, Intramuscular 07/30/2022,10/11/2021 Influenza, Quadrivalent, Spl it, Intramuscular 08/06/2018,07/29/2017,09/05/2016,10/16 Influenza, Quadrivalent, Spl it, Preservative Free, Intramuscular 07/21/2020 Influenza, Trivalent, High D ose, Split, Preservative Free, Intramuscular 08/06/2019 Influenza, Trivalent, IM (MDV) 08/15/2014 Influenza, Unspecified 07/30/2022,2019,08/06/2019,01/30 Pfizer SARS-CoV-2 Monovalent Vaccination (12+ Yrs) PURPLE 01/12/2021,12/22/2020 Pneumococcal Conjugate PCV 13 01/28/2017 Pneumococcal Polysaccharide PPV23 05/08/2021, Tdap 03/11/2023, 2,11/10/2011,05/15 ZOSTER LIVE 02/02/2018,01/30/2017,08/15/2014 Medical History Medical History Date Comments Stroke (HCC) Family History Medical History Relation Name Comments Cancer Father COPD Mother Emphysema Mother Heart failure Mother Relation Name Status Comments Father (Age 63) Mother (Age 74) Social History Tobacco Use Types Packs/Day Years Used Date Smoking Tobacco: Never Tobacco Cessation:Counseling Given: Not Answered Alcohol Use Standard Drinks/Week Comments Never 0 (1 standard drink = 0.6 oz pur e alcohol) AUDIT-C Answer Date Recorded Q1: How often do you have a drink containing alc ohol? 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 Gender Identity Female 03/05/2022 1:04 PM CDT Sexual Orientation Choose not to disclose 2021 1:04 PM CDT Obstetrics History Last Filed Vital Signs Vital Sign Reading Time Taken Comments Blood Pressure 151/80 04/30/2023 1:29 PM CDT Pulse 70 04/30/2023 1:29 PM CDT Temperature 36.4 C (97.6 F) 04/30/2023 1:29 PM CDT Respiratory Rate 18 04/30/2023 1:29 PM CDT Oxygen Saturation 98% 04/30/2023 1:29 PM CDT Inhaled Oxygen Concentration - - Weight 116.6 kg (257 lb) 03/11/2023 12:38 PM CDT Height 165.1 cm (5' 5) 03/11/2023 12:38 PM CDT Body Mass Index 42.77 03/11/2023 12:38 PM CDT Plan of Treatment Health Maintenance Due Date Last Done Comments Albumin Creatinine Ratio, Urine 1955 Foot Exam 1955 Hepatitis B Screening 01/24/1972 Zoster Vaccine (2 of 3) 03/30/2018 02/03/20 18, 01/30/2017, 08/15/2014 Breast Cancer Screening-Mammogram 05/26/2021 05/26/2020, 04/19/2019, 04/15/2018 Osteoporosis Screening-Bone Density Scan 06/07/2022 06/07/2020 Lipid Panel 01/19/2023 01/19/2022, 03/10, 08/13/2019 Hemoglobin A1C 09/25/2023 03/25/2023, 09/11, 11/17/2020, Additional history exists Depression Screening 10/01/2023 10/01/2022, 04/02/2022, 09/11/2021, Additional history exists Fall Risk Assessment 10/01/2023 10/01/2022, 04/02/2022, 09/11/2021, Additional history exists Well Visit 65+ 10/01/2023 10/01/2022, 12/2020, 05/29/2020 eGFR 04/29/2024 04/29/2023, 04/10, 04/18/2023, Additional history exists Covid-19 Vaccine (2023-2 5 season) 2024 05/21/2022, 09/19/2021, 01/12/2021, Additional history exists Dilated Eye Exam 10/15/2024 10/15/2022, 10/02/2021 Influenza Vaccine (#1) 2025 , 07/30/2022, 10/11/2021, Additional history exists Colon Cancer Screening-Colonoscopy 11/06/2026 11/06/2016 DTaP/Tdap/Td Vaccine (5 - Td or Tdap) 03/11/2033 03/11/2023, 03/07/2012, 11/10/2011, Additional history exists Colon Cancer Screening-CT Colonography Discontinued 11/06/2016 Colon Cancer Screening-DNA Stool Discontinued 11/06/20 16 Colon Cancer Screening-FIT Discontinued 11/06/2016 Colon Cancer Screening-Sigmoidoscopy Discontinued 11/06/2016 Hepatitis C Screening Completed 08/09/2020 Pneumococcal vaccine 65+ Completed 021, 01/28/2017, 12/05/2011 Procedures Procedure Name Priority Date/Time Associated Diagnosis Comments EGFR Routine 04/29/2023 5:00 AM CDT HEMOGLOBIN A1C Routine 03/25/2023 11:45 AM CDT DIABETIC EYE EXAM Routine 10/15/2022 HEPATITIS C ANTIBODY Routine 08/09/2020 7:28 AM CDT DEXA AXIAL SKELETON BONE DENSITY 1 OR MORE SITES 06/07/2020 9:08 AM CDT SCREENING MAMMOGRAM BILATERAL W YUSUF 05/26/2020 1:39 PM CDT LIPID PANEL Routine 03/22/2020 10:41 AM CDT COLONOSCOPY Routine 11/06/2016 from Last 3 Months or Most Recently Relevant to Health Maintenance Results * eGFR (04/29/2023 5:00 AM CDT) eGFR 69 mL/min/1. 73 m2 [facility] Comment: Interpretive Data Reference Interval Normal >/= 90 mL/min/1.73m2 Mildly decreased* 60 - 89 mL/min/1.73m2 Mildly to moderately decreased 45 - 59 mL/min/1.73m2 Moderately to severely decreased 30 - 44 mL/min/1.73m2 Severely decreased 15 - 29 mL/min/1.73m2 Kidney Failure < 15 mL/min/1.73m2 *Relative to young adult level Estimated glomerular filtration rate is determined by the 2020 CKD-EPI equation recommended by the National Kidney Foundation (A Unifying Approach to GFR Estimation: Recommendations of the NKF-ASK Task Force on Reassessing the Inclusion of Race in Diagnosing Kidney Disease, JASN 202). The CKD-EPI equation should not be used for patients with unstable renal function and has not been validated in children and those over 70. Current interpretive data was last reviewed 2021. Testing performed by: [facility], [address] [place] [address]., [id number] Blood 04/29/2023 5:00 AM CDT 04/29/2023 6:06 AM CDT Jovon Kerns MD LAB BLOOD ORDERABLES Final R esult Performing Organization Address City/[facility] [[email or web address]] Co de Phone Number MELLY [address] [place] [address] * Hemoglobin A1c (03/25/2023 11:45 AM CDT) [facility] Hgb A1C 5.6 4.0 - 5.6 % [facility] Comment:Testing performed by : [address] [address] Estimated Average Glucose 114 mg/dL [facility] Comment: The ADA recommends reporting an estimated Average Glucose (eAG) with all Hemoglobin A1c results using the equation derived from a study of 507 normal and diabetic adults. Minority populations were underrepresented and children were not included. (Diabetes Care 31:1893-8775, 2008). The eAG is not equivalent to a fasting glucose. Testing performed by: [address] [address] Blood 03/25/2023 11:4 5 AM CDT 03/25/2023 12:08 PM CDT Jovon Kerns MD LAB BLOOD ORDERABLES Final R esult Performing Organization Address City/[facility] [[email or web address]] Co de Phone Number MELLY [address] [place] [address] * Diabetic Eye Exam (10/15/2022) Historical Provider HEALTH MAINTENANCE Final Result * Hepatitis C antibody (08/09/2020 7:28 AM CDT) [facility] Hep C Ab NON-REACTI VE NON-REACT IRMA [facility] SIGNAL TO CUT-OFF 0.03 <1.00 [facility] Comment: HCV antibody was non-reactive. There is no laboratory evidence of HCV infection. In most cases, no further action is required. However, if recent HCV exposure is suspected, a test for HCV RNA (test code 45768) is suggested. For additional information please refer to http://education.Bix/faq/TNG39t9 (This link is being provided for informational/ educational purposes only.) 08/09/2020 7:28 AM CDT 08/09/2020 7:28 AM CDT us Kale Gusman DO LAB MICROBIOLOGY - GENER AL ORDERABLES Final Result Performing Organization Address City/State/[facility] [[email or web address]] Co de Phone Number STEVAN [facility] [address] [address] [phone] * Dexa Axial Skeleton Bone Density 1 or 2 Site (06/07/2020 9:08 AM CDT) Anatomical Region Laterality Modality Body N/A Radiographic Faby ging 06/07/2020 9:37 AM CDT Narrative 06/07/2020 9:43 AM CDT Patient Name: IRIS SALCIDO Dr: Kale Gusman DO D.O.B: 1955 Exam Date: 06/07/20907 Age: 65 Sex: Female MR#: [id number] Loc: RADIOLOGY REPORT Order #[id number] Bone Density Bone Density Hip/Spine (STD) Signed EXAM DESCRIPTION: Bone Density Hip/Spine (STD) REASON FOR STUDY: 65 year old postmenopausal white female with given history of screening. 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 Has taken vitamin-D and calcium. Does not perform regular weight-bearing exercise. Regularly consumes dairy products. Drinks caffeinated beverages. COMPARISON: None available. FINDINGS: AP LUMBAR SPINE L1-L4: Total BMD is 1.062 g/cm2 T-score is 0.1 Measured BMD is thought to be slightly elevated due to spondylosis. LEFT HIP: Total BMD is 0.927 g/cm2 T-score is -0.1 Femoral neck BMD is 0.694 g/cm2 T-score is -1.4 Fracture risk assessment (FRAX): 10 year risk for a major osteoporotic fracture is 7.6 % 10 year risk for a hip fracture is 0.7 % The FRAX tool has not been validated in patients currently or previously treated with pharmacotherapy for osteoporosis. In such patients, clinical judgement must be exercised in interpreting FRAX scores as the fracture risk may be overestimated. IMPRESSION: Low bone mass. REFERENCE: Bone mineral density: Normal (T-score above or = -1.0) Low bone mass (T-score between -1.0 and -2.5) replaces the previously used term osteopenia Osteoporosis (T-score = or below -2.5) Medical evaluation for secondary causes of low bone mineral density may be appropriate. FRAX is a World Health Organization validated fracture risk assessment tool that calculates a person's 10 year probability of a major osteoporosis related fracture and hip fracture. According to the National Osteoporosis Foundation guidelines, postmenopausal women and men age 50 or older with low bone mass and a 10 year probability of a major osteoporosis related fracture = or greater than 20% or a 10 year probability of a hip fracture = or greater than 3% should be considered for treatment. For further information, including treatment recommendations, please refer to the 2013 ISCD Official Positions (http://www.iscd.org) and the NOF's Clinician's Guide to Prevention and Treatment of Osteoporosis (http://www.nof.org/professionals/clinical-guidelines) THIS IS AN ELECTRONICALLY VERIFIED FINAL REPORT 06/07/2020 9:43 AM - Electronically signed by Riaz Negro M.D. RB: SINCERE Report ID: [id number] Reading Location: [place] [address] REPORT ELECTRONICALLY SIGNED IN OTHER VENDOR SYSTEM Resulting Agency Comment O Procedure Note Riaz Negro MD - 06/07/2020 Patient Name: IRIS SALCIDO Dr: Kale Gusman DO, D.O.B: 1955 Exam Date: 06/07/20907 Age: 65 Sex: Female MR#: [id number] [id number] Order #[id number] Bone Density Bone Density Hip/Spine (STD) Signed EXAM DESCRIPTION: Bone Density Hip/Spine (STD) REASON FOR STUDY: 65 year old postmenopausal white female with given history of screening. 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 Has taken vitamin-D and calcium. Doesnot perform regular weight-bearing exercise. Regularly consumes dairyproducts. Drinks caffeinated beverages. COMPARISON: None available. FINDINGS: AP LUMBAR SPINE L1-L4: Total BMD is 1.062 g/cm2 T-score is 0.1 Measured BMD is thought to be slightly elevated due to spondylosis. LEFT HIP: Total BMD is 0.927 g/cm2 T-score is -0.1 Femoral neck BMD is 0.694 g/cm2 T-score is -1.4 Fracture risk assessment (FRAX): 10 year risk for a major osteoporotic fracture is 7.6 % 10 year risk for a hip fracture is 0.7 % The FRAX tool has not been validated in patients currently or previously treated with pharmacotherapy for osteoporosis. In such patients,clinical judgement must be exercised in interpreting FRAX scores as the fracturerisk may be overestimated. IMPRESSION: Low bone mass. REFERENCE: Bone mineral density: Normal (T-score above or = -1.0) Low bone mass (T-score between -1.0 and -2.5) replaces thepreviously used term osteopenia Osteoporosis (T-score = or below -2.5) Medical evaluation for secondary causes of low bone mineral density maybe appropriate. FRAX is a World Health Organization validated fracture risk assessmenttool that calculates a person's 10 year probability of a major osteoporosisrelated fracture and hip fracture. According to the National OsteoporosisFoundation guidelines, postmenopausal women and men age 50 or older with low bonemass and a 10 year probability of a major osteoporosis related fracture = or greater than 20% or a 10 year probability of a hip fracture = or greaterthan 3% should be considered for treatment. For further information, including treatment recommendations, pleaserefer to the 2013 ISCD Official Positions (http://www.iscd.org) and the NOF's Clinician's Guide to Prevention and Treatment of Osteoporosis (http://www.nof.org/professionals/clinical-guidelines) THIS IS AN ELECTRONICALLY VERIFIED FINAL REPORT 06/07/2020 9:43 AM - Electronically signed by Riaz Negro M.D. RB: SINCERE Report ID: [id number] Reading Location: [id number] REPORT ELECTRONICALLY SIGNED IN OTHER VENDOR SYSTEM us Kale Gusman DO IMG DXA PROCEDURES Final Result * Screening Mammogram Bilateral W Yusuf (05/26/2020 1:39 PM CDT) Anatomical Region Laterality Modality Breast Bilateral Mammography 05/26/2020 2:39 PM CDT Narrative 05/26/2020 4:23 PM CDT Patient Name: IRIS SALCIDO Dr: Jose A Mane MDOPbaloB: 1955 Exam Date: 05/26/20 1339 Age: 65 Sex: Female MR#: [id number] Loc: RADIOLOGY REPORT Order #[id number] [facility] Pavel Bilat Screening 3D Signed - MG BILATERAL DIGITAL SCREENING MAMMOGRAM 3D/2D WITH MEDIOLATERAL OBLIQUE CRANIOCAUDAL: 05/26/2020 The study was acquired using full field digital technology and interpreted from soft copy. 2D digital mammographic views, as well as 3D digital tomosynthesis were performed in the CC and MLO projections. CLINICAL: Routine mammogram. Denies any problems today. No personal history of breast cancer. No family history of breast cancer. COMPARISONS: Comparison is made to exams dated: 04/19/2019 mammogram - [facility], 04/15/2018 mammogram, and 03/15/2017 mammogram. BREAST TISSUE: There are scattered areas of fibroglandular density. FINDINGS: There are benign appearing calcifications in both breasts. There also are post operative findings in the right breast. No significant masses, calcifications, or other findings are seen in either breast. There has been no significant interval change. IMPRESSION: BI-RAD 2 BENIGN There is no mammographic evidence of malignancy. A 1 year screening mammogram is recommended. The patient has been or will be contacted. We recommend annual screening mammography for women at average risk of breast cancer beginning at age 40, based on guidelines of the [employer] (ACR Practice Parameter for the Performance of Screening and Diagnostic Mammography) and [employer]. For women with an elevated risk of breast cancer, please refer to the ACR Practice Parameter for specific screening recommendations. The patient will be entered into a reminder system with a target due date of 1 year for her next screening exam. Electronically signed by: Geoff Cummings M.D., md/penrad:05/26/2020 16:23:02 Cylinder Devalver: Jessica Chahal RT(R)(M), [facility] letter sent: Normal Exam Reading location: BI-RADS: 2 Benign REPORT ELECTRONICALLY SIGNED IN OTHER VENDOR SYSTEM Resulting Agency Comment O Procedure Note Geoff Cummings MD - 05/26/2020 Patient Name: IRIS SALCIDO Dr: Jose A Mane MD D.O.B: 1955 Exam Date: 05/26/20 1339 Age: 65 Sex: Female MR#: [id number] Loc: RADIOLOGY REPORT Order #[id number] [facility] Pavel Bilat Screening 3D Signed - MG BILATERAL DIGITAL SCREENING MAMMOGRAM 3D/2D WITH MEDIOLATERAL OBLIQUE CRANIOCAUDAL: 05/26/2020 The study was acquired using full field digital technology andinterpreted from soft copy. 2D digital mammographic views, as well as 3D digital tomosynthesis were performed in the CC and MLO projections. CLINICAL: Routine mammogram. Denies any problems today. No personalhistory of breast cancer. No family history of breast cancer. COMPARISONS: Comparison is made to exams dated: 04/19/2019 mammogram -[facility], 04/15/2018 mammogram, and 03/15/2017 mammogram. BREAST TISSUE: There are scattered areas of fibroglandular density. FINDINGS: There are benign appearing calcifications in both breasts.There also are post operative findings in the right breast. No significant masses, calcifications, or other findings are seen ineither breast. There has been no significant interval change. IMPRESSION: BI-RAD 2 BENIGN There is no mammographic evidence of malignancy. A 1 year screeningmammogram is recommended. The patient has been or will be contacted. We recommend annual screening mammography for women at average risk ofbreast cancer beginning at age 40, based on guidelines of the [employer] (ACR Practice Parameter for the Performance of Screening and Diagnostic Mammography) and [employer]. For women with an elevated risk of breast cancer, pleaserefer to the ACR Practice Parameter for specific screening recommendations. The patient will be entered into a reminder system with a target due dateof 1 year for her next screening exam. Electronically signed by: Geoff Cummings M.D., md/adria:05/26/2020 16:23:02 Cylinder Devalver: Jessica BAUTISTA(Luli)([place]), [facility] letter sent: Normal Exam Reading location: BI-RADS: 2 Benign REPORT ELECTRONICALLY SIGNED IN OTHER VENDOR SYSTEM Jose A Mane MD IM MAMMO PROCEDURES Final Result * Lipid panel (03/22/2020 10:41 AM CDT) Cholesterol 124 <200 mg/dL [facility] HDL 58 > OR = 50 mg/dL [facility] Triglycerides 105 <150 mg/dL [facility] LDL 47 mg/dL (calc) [facility] Comment: Reference range: <100 Desirable range <100 mg/dL for primary prevention; <70 mg/dL for patients with CHD or diabetic patients with > or = 2 CHD risk factors. LDL-C is now calculated using the Ben-Duffy calculation, which is a validated novel method providing better accuracy than the Friedewald equation in the estimation of LDL-C. Ben SS et al. MARION. 2013;310(19): 6792-2471 (http://education.Bitboys Oy.MyChurch/faq/QUL330) Chol/HDL ratio 2.1 <5.0 (calc) [facility] Non-HDL, (LDL+VLDL) 66 <130 mg/dL (calc) [facility] Comment: For patients with diabetes plus 1 major ASCVD risk factor, treating to a non-HDL-C goal of <100 mg/dL (LDL-C of <70 mg/dL) is considered a therapeutic option. 03/22/2020 10:4 1 AM CDT 03/22/2020 10:42 AM CDT Narrative [facility] - 03/23/2020 7:45 AM CDT FASTING:YES FASTING: YES Kale Gusman DO LAB BLOOD ORDERABLES Fin al Result [facility] [id number] [id number] * Colonoscopy (11/06/2016) Anatomical Region Laterality Modality Other Historical Provider MD ENDOSCOPY PROCEDURES Fatuma l Result from Last 3 Months or Most Recently Relevant to Health Maintenance Insurance [employer] Member Subscriber Plan / Payer (Ef fective 2020-Present) Name:Iris Salcido Relation to Subscriber:Self Name:Iris Salcido Payer ID:[id number] (NAIC) Type:MEDICARE RISK OTHER Address: [address] [place] MED[employer]ARE [facility] Address: [address] [address] [place] [address] Advance Directives For more information, please contact: [phone] Documents on File Type Date Recorded 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
--- OUTSIDE RECORDS SUMMARY | 2025-06-28 01:07 | XMS_ITS | Patient Health Record ---
Author Organization [facility] Address [address] [place], [place] [id number] Care Team Providers Care Photographic Process Screen Maker Name Role Phone GIGIRAGHAV RIVERA Unavailable [phone] Kale Gusman Unavailable Unavailable Reason For Referral No Information Plan Of Treatment No Information Insurance Providers Payer Name Payer Address Payer Phone Subscriber Number Group Number Insured Name Patient Relationship to Insured Coverage Start Date Coverage End Date [employer] [address] [place] [address] [id number] IRIS SALCIDO Self - patient is the insured
--- OUTSIDE RECORDS SUMMARY | 2025-06-28 01:07 | XMS_ITS | Encounter Summary ---
Author Organization [facility] Address [address] [place] [address] Care Team Providers Care Event Sales Assistant Name Role Phone Keerthi Russell MD Primary Care Provider [phone] Kale Lanza MD Primary Care Provider Unava [facility] John Langley DO Primary Care Provider [phone] Encounter Details Date Type Department Care Team (Late st Contact Info) Description 04/17/2019 Abstract [facility] [address] [place] [address] , Generic MD Leodan Social History Tobacco Use Types Packs/Day Years Used Date Smoking Tobacco: Never Assessed Comments Unknown Sex and Gender Information Value Date Recorded Sex Assigned at Not on file Legal Sex Female 10:29 AM CARROT BUNCHER Gender Identity Not on file Sexual Orientation Not on file documented as of this encounter Plan of Treatment Upcoming Encounters Date Type Department Care Team (Late st Contact Info) Description 07/11/2025 4:00 PM CDT Allied Health/Nurse Visit [facility], [facility] [address] [place], [place] [id number] Prashant Melgar MD [facility] [address] [place], [place] [address] 10/31/2025 11:00 AM CARROT BUNCHER Office Visit [facility], [facility] [address] [place] [address] Raza Schultz, UTILITY TECH Three [facility] [address] [place] [address] documented as of this encounter Visit Diagnoses Not on filedocumented in this encounter Additional Health Concerns Infection Onset Date Last Indicated Resolved Time COVID-19 Rule Out 01/11/2023 01/11/2023 01/11/2023 5:25 PM CARROT BUNCHER COVID-19 Confirmed 01/11/2023 01/11/2023 12:32 AM CDT COVID-19 Rule Out 02/11/2023 02/11/2023 02/11/2023 7:46 PM CDT COVID-19 Rule Out 03/21/2023 03/21/2023 03/21/2023 10:15 PM CDT documented as of this encounter Care Teams Event Sales Assistant Relationship Specialty Start Date End Date Keerthi Russell MD [address] [facility] [address] [place] [address] PCP - General 03/15/17 10/15/19 Kale Lanza MD PCP - General FAMILY PRACTICE 10/16/19 05/09/20 John Langley DO PCP - General INTERNAL MEDICINE 10/26/24 documented as of this encounter
[2025-06-28 06:10] VITALS: BP 125/55; PULSE 68; RESP 18; TEMP 36.4; O2SAT 97
[2025-06-28] MEDS: ACETAMINOPHEN 500 MG TABLET 1000 MG PO (06:20)
[2025-06-28] MEDS: LACTATED RINGERS 1,000 ML 30 ML IV CONT (06:25)
--- NOTE | 2025-06-28 06:55 | WPDANESEPPF ---
Anes - Initial Pre Proc Eval Procedure: Operation Date: 06/28/25 07:30 Proposed Procedures p Hysteroscopy, Dilation and Curettage - Calvin Beltran MD Date/Time: 06/28/25 06:55 Surgeon: Calvin Beltran MD Pre Op Diagnosis: post menopausal bleeding Patient Data Age: 70 Gender: F Height: 1.65 m Weight: 141.4 kg Last Vital Signs Temp 36.4 C 06/28/25 06:10 Pulse 68 06/28/25 06:10 Resp 18 06/28/25 06:10 BP 125/55 L 06/28/25 06:10 Pulse Ox 97 06/28/25 06:10 O2 Del Method Room Air 06/28/25 06:10 Allergies Allergy/AdvReac Type Severity Reaction Status Date / Time Penicillins Allergy Intermediate Rash Verified 06/28/25 06:47 Sulfa (Sulfonamide Allergy Intermediate Unknown Verified 06/28/25 06:47 Antibiotics) imiquimod Allergy Unknown unknown Verified 06/28/25 06:47 tramadol Allergy Nausea and Verified 06/28/25 06:47 Vomiting Home Medications ?Medication ?Instructions ?Recorded ?Confirmed ?Type acetaminophen 325 mg tablet 650 mg PO Q6H PRN Headache 08/28/23 06/16/25 History atorvastatin 10 mg tablet 10 mg PO HS 08/28/23 06/28/25 History cholecalciferol (vitamin D3) 25 25 mcg PO DAILY 08/28/23 06/28/25 History mcg (1,000 unit) tablet exenatide 10 mcg/dose(250 10 mcg subcut BID 08/28/23 06/28/25 History mcg/mL)2.4 mL subcutaneous pen injector (Bike HUD) furosemide 20 mg tablet 20 mg PO DAILY 08/28/23 06/28/25 History levothyroxine 75 mcg tablet 75 mcg PO DAILY 08/28/23 06/28/25 History lisinopril 20 mg tablet 20 mg PO DAILY 08/28/23 06/28/25 History melatonin 5 mg tablet 5 mg PO HS 08/28/23 06/28/25 History polyethylene glycol 3350 17 17 g PO DAILY 08/28/23 06/28/25 History gram/dose oral powder (Miralax) cyanocobalamin (vitamin B-12) 1,000 mcg subcut MONTHLY 04/27/25 06/28/25 History 1,000 mcg/mL injection solution ferrous sulfate 325 mg (65 mg 325 mg PO DAILY 04/27/25 06/28/25 History iron) tablet fluticasone propionate 50 2 spray intranasal Q12H PRN nasal 04/27/25 06/16/25 History mcg/actuation nasal congestion spray,suspension hydrochlorothiazide 25 mg tablet 25 mg PO DAILY 04/27/25 06/28/25 History hydroxyzine HCl 25 mg tablet 25 mg PO BID PRN itching 04/27/25 06/16/25 History insulin aspart U-100 100 unit/mL 1 unit subcut TIDWMEAL PRN glucose 04/27/25 06/28/25 History (3 mL) subcutaneous pen (Novolog FlexPen U-100 Insulin aspart) insulin degludec 100 unit/mL (3 15 unit subcut BIDAC 04/27/25 06/28/25 History mL) subcutaneous pen (Tresiba FlexTouch U-100 insulin) ondansetron 4 mg disintegrating 4 mg PO Q8H PRN nausea and vomiting 06/16/25 06/16/25 History tablet Laboratory Tests 06/28/25 06:29 POC Capillary Glucose 169 H mg/dl (65-105) Patient hx anesthesia problems: none Family hx anesthesia problems: none Results Review: All pre-operative results and documents have been reviewed as part of the pre-operative evaluation. [facility] Past Medical History Medical History (Updated 06/27/25 @ 13:50 by Vance Bowman DO) Chronic kidney disease due to diabetes mellitus Hypothyroidism CVA (cerebral vascular accident) Diabetes mellitus Hypertension Hyperlipidemia Surgical History Surgical History (Updated 04/27/25 @ 10:57 by Mitali Garcia CMA) H/O dilation and curettage H/O skin graft Hx of cholecystectomy History of delivery Family History Family History Other Unknown family medical history Social History Social History (Updated 04/27/25 @ 10:58 by Mitali Garcia CMA) Smoking status: Unknown if ever smoked Alcohol intake: never Substance use: unknown Do You Feel Safe in your Home?: Yes Lack of Transportation: No Lack of Food: Never True Current Housing: I Have Housing Concerned About Future Housing: No Difficulty Paying Gas/Electric Bills: No Difficulty Paying for Meds: No Currently Unemployed: No Education: High School Diploma/GED Difficulty w/ Childcare or Family Care: No Living arrangements: residential Occupation/Education: retired Gender identity (if verbalized by the patient): Female Spiritual care concerns: No Anes - Eval Final PreProcedure Day of Procedure 06/28/25 06:55 Patient weight: super morbidly obese Heart: regular rate and rhythm Lungs: clear to auscultation Airway: Mallampati scale class II Neurological: alert and oriented Last oral intake: >/= 8 hours ASA classification: IV Emergent: no Anesthetic plan: proceed Anesthesia type and monitoring: general GIVS and standard monitoring Results Review: All pre-operative results and documents have been reviewed as part of the pre-operative evaluation. Informed Consent: The patient's anesthetic plan and its attendant risks and benefits were discussed with the patient/family/POA. Questions were solicited and answers provided to the satisfaction of the patient/family/POA.
--- NOTE | 2025-06-28 07:09 | PM.IMHP ---
H&P: HPI History of Present Illness Date/Time: 06/28/25 07:09 Chief Complaint: postmenopausal bleeding Narrative: 70-year-old female who presents for hysteroscopy D&C for postmenopausal bleeding. Patient states she has had two separate epidosdes of bleeding since her last visit. Pelvic ultrasound was performed which showed endometrial lining of 11 mm. Review of Systems Cardiovascular: Cardiovascular: Denies chest pain, Denies leg edema, Denies palpitations, Denies dyspnea and Denies dyspnea on exertion Respiratory: Respiratory: Denies cough, Denies dyspnea and Denies dyspnea on exertion Gastrointestinal: Gastrointestinal: Denies abdominal pain, Denies constipation, Denies diarrhea, Denies nausea and Denies vomiting Genitourinary: Genitourinary: Denies hematuria, Denies urinary frequency, Denies dysuria, Denies pelvic pain, Denies urinary incontinence and Denies vaginal discharge Neurologic: Reports system reviewed and no additional complaints, except as documented Psychiatric: Psychiatric: Reports no additional psychiatric complaints Endocrine: Endocrine: Denies palpitations PMFSH Past Medical History Medical History (Updated 06/27/25 @ 13:50 by Vance Bowman DO) Hypothyroidism CVA (cerebral vascular accident) Chronic kidney disease due to diabetes mellitus Hypertension Hyperlipidemia Diabetes mellitus Surgical History Surgical History (Updated 04/27/25 @ 10:57 by Mitali Garcia CMA) H/O dilation and curettage H/O skin graft Hx of cholecystectomy History of delivery Family History Family History Other Unknown family medical history Social History Social History (Updated 04/27/25 @ 10:58 by Mitali Garcia CMA) Smoking status: Unknown if ever smoked Alcohol intake: never Substance use: unknown Do You Feel Safe in your Home?: Yes Lack of Transportation: No Lack of Food: Never True Current Housing: I Have Housing Concerned About Future Housing: No Difficulty Paying Gas/Electric Bills: No Difficulty Paying for Meds: No Currently Unemployed: No Education: High School Diploma/GED Difficulty w/ Childcare or Family Care: No Living arrangements: snf Occupation/Education: retired Gender identity (if verbalized by the patient): Female Spiritual care concerns: No Meds Home Medications and Allergies Home Medications ?Medication ?Instructions ?Recorded ?Confirmed ?Type acetaminophen 325 mg tablet 650 mg PO Q6H PRN Headache 08/28/23 06/16/25 History atorvastatin 10 mg tablet 10 mg PO HS 08/28/23 06/28/25 History cholecalciferol (vitamin D3) 25 25 mcg PO DAILY 08/28/23 06/28/25 History mcg (1,000 unit) tablet exenatide 10 mcg/dose(250 10 mcg subcut BID 08/28/23 06/28/25 History mcg/mL)2.4 mL subcutaneous pen injector (Magda) furosemide 20 mg tablet 20 mg PO DAILY 08/28/23 06/28/25 History levothyroxine 75 mcg tablet 75 mcg PO DAILY 08/28/23 06/28/25 History lisinopril 20 mg tablet 20 mg PO DAILY 08/28/23 06/28/25 History melatonin 5 mg tablet 5 mg PO HS 08/28/23 06/28/25 History polyethylene glycol 3350 17 17 g PO DAILY 08/28/23 06/28/25 History gram/dose oral powder (Miralax) cyanocobalamin (vitamin B-12) 1,000 mcg subcut MONTHLY 04/27/25 06/28/25 History 1,000 mcg/mL injection solution ferrous sulfate 325 mg (65 mg 325 mg PO DAILY 04/27/25 06/28/25 History iron) tablet fluticasone propionate 50 2 spray intranasal Q12H PRN nasal 04/27/25 06/16/25 History mcg/actuation nasal congestion spray,suspension hydrochlorothiazide 25 mg tablet 25 mg PO DAILY 04/27/25 06/28/25 History hydroxyzine HCl 25 mg tablet 25 mg PO BID PRN itching 04/27/25 06/16/25 History insulin aspart U-100 100 unit/mL 1 unit subcut TIDWMEAL PRN glucose 04/27/25 06/28/25 History (3 mL) subcutaneous pen (Novolog FlexPen U-100 Insulin aspart) insulin degludec 100 unit/mL (3 15 unit subcut BIDAC 04/27/25 06/28/25 History mL) subcutaneous pen (Tresiba FlexTouch U-100 insulin) ondansetron 4 mg disintegrating 4 mg PO Q8H PRN nausea and vomiting 06/16/25 06/16/25 History tablet Allergies Allergy/AdvReac Type Severity Reaction Status Date / Time Penicillins Allergy Intermediate Rash Verified 06/28/25 06:47 Sulfa (Sulfonamide Allergy Intermediate Unknown Verified 06/28/25 06:47 Antibiotics) imiquimod Allergy Unknown unknown Verified 06/28/25 06:47 tramadol Allergy Nausea and Verified 06/28/25 06:47 Vomiting Vital Signs Vital Signs - 24 hr 06/28/25 06:10 Temperature 97.6 F Pulse Rate 68 Respiratory Rate 18 Blood Pressure 125/55 L Pulse Oximetry 97 Oxygen Delivery Room Air Exam Const: General: no acute distress Eyes: EOM: EOMs intact bilaterally Neck: Neck: supple Thyroid: thyroid normal Chest: Breast/axilla inspection: normal inspection of the breasts Breast/axilla palpation: normal palpation of the breasts, normal palpation of the axillae and no axillary lymphadenopathy Resp: Effort & Inspection: normal respiratory effort Auscultation: clear to auscultation bilaterally Cardio: Rate: regular rate Rhythm: regular rhythm GI: Inspection: non-distended GI Palp: Yes Soft to palpation, No Tenderness to palpation present (GI) and No Guarding due to palpation present (GI) Auscultation: normal bowel sounds : General: No bladder normal to palpation External Female Exam: normal external appearance Speculum Exam - Vagina: normal vaginal discharge and No vaginal bleeding Speculum Exam - Cervix: nontender Bimanual exam- vagina & uterus: No bladder normal to palpation and No Cervical tenderness present OB/external & speculum: No vaginal bleeding Skin: General skin exam: normal color and no rashes or lesions noted Neuro: Cognition (Neuro): normal cognition Speech: normal speech Extrem: General: normal to inspection and no edema Psych: Mental Status: mental status grossly normal Affect: normal affect Assessment and Plan Assessment and plan (1) Postmenopausal bleeding: Code(s): N95.0 - Postmenopausal bleeding Status: Acute Assessment and Plan: 70 yo female who presents for hysteroscopy D&C for postmenopausal bleeding Patient has had another episode of postmenopausal bleeding since her last visit Pelvic ultrasound was obtained which showed a thickened endometrium of 11 mm Recommended tissue sampling to evaluate for potential malignancy Patient is wheelchair-bound and and I both to tolerate speculum exam Recommended exam under anesthesia and hysteroscopy D&C Risks, benefits, alternatives discussed Will plan to proceed with hysteroscopy D&C (2) Endometrial thickening on ultrasound: Code(s): R93.89 - Abnormal findings on diagnostic imaging of other specified body structures Status: Acute
--- NOTE | 2025-06-28 07:10 | WPDHPUPDATE1 ---
History and Physical Update Update Date/Time: 06/28/25 07:10 History and Physical has been reviewed, including an updated exam of the patient. There are NO changes in the patient's condition. Risks, benefits, and alternatives have been discussed and questions answered. Patient agrees to proceed with procedure.
--- NOTE | 2025-06-28 07:43 | S_PTH ---
PATIENT: Chika Thompson LOC: [facility] U#:[id number] AGE/SX: 70/F ROOM: RE06/28/[address]: Calvin Beltran MD : 1955 BED: DIS: 06/28/2025 SPEC #: [id number] RECD: 06/28/25 08:53 STATUS: LUIZATheresa REQ #: [id number] GILES: 06/28/25 07:[address]: Calvin Beltran DEPT: [facility] Surgical RECD BY: Cee Aquino ENTERED: 06/28/25 08:54 SP TYPE: Surgical OTHR DR: John Langley, DO Tissues: A - Endometrial Curettings Procedures: Hematoxylin and Eosin Stain Estrogen Receptor Immuno Progestogen Receptor immuno Gross and Microscopic Level 4 P53 MLH1 MSH2 MSH6 PMS2
--- NOTE | 2025-06-28 07:49 | W.PM.PROC2 ---
Procedure Note - Detailed Date of Procedure 06/28/25 Pre-op Diagnosis post menopausal bleeding thickened endometrium Post-op Diagnosis Same Procedure Performed hysteroscopy dilation & curettage Surgeon Calvin Beltran MD Anesthesia General Indications postmenopausal bleeding thickened endometrium on US Findings calcium deposits noted in the endometrium, polypoid tissues extending from the right lateral uterine side wall. Normal tubal ostia bilaterally Description of Procedure Chika Thompson presents for hysteroscopy D&C for PMB. She was counseled as to the indications, risks, benefits, and alternatives to surgery, with the risks including bleeding, infection, damage to surrounding organs, VTE, and complications of anesthesia. Her verbal and written consent was obtained. PROCEDURE: The patient was taken to the OR and general anesthesia induced. She was prepped and draped in Marcus stirrups with support of the back and bilateral lower extremities. I/O catheterization performed of the bladder. The above findings were noted. A single tooth tenaculum was placed on the anterior lip of the cervix. The uterus sounded to 7.5 cm. The cervix was dilated with sequential Elham dilators. Hysteroscopy, using a normal saline medium, was performed and showed the above findings. Sharp uterine curettage was then performed and tissue placed on Telfa. The tenaculum was removed and hemostasis was observed. The patient tolerated the procedure well. Sponge, lap, and needle counts were correct. The patient had SCD's on throughout the case for VTE prophylaxis. The patient was taken to the recovery room in stable condition. Estimated Blood Loss 10 Drains No Packing No Pathology Yes (endometrial curettings ) Complications No immediate complications Condition Stable Disposition PACU [facility] Billing Surgery - Charge Forward: Surgery Billing
[2025-06-28 07:54] VITALS: BP 101/43; PULSE 67; RESP 16; O2SAT 100
[2025-06-28 08:15] VITALS: BP 103/53; PULSE 59; RESP 16; O2SAT 97
[2025-06-28 08:45] VITALS: BP 115/71; PULSE 61; O2SAT 100
[2025-06-28] MEDS: IBUPROFEN 400 MG TABLET PO (09:14)
--- NOTE | 2025-06-28 09:15 | SUR.PHASEII ---
0915 PT DRESSED & WAITING FOR RIDE HOME. MEETS ANESTHESIA DISCHARGE CRITERIA.
== END 2025-06-28 10:19 | disposition home or self-care (01) ==
PROVIDERS: PCP Internal Medicine; Visit Provider Student in an Organized Health Care Education/Training Program
PROC: 0U5B8ZZ Destruction of Endometrium, Via Natural or Artificial Opening Endoscopic (ICD-10-PCS; CPT 58563; principal; 2025-06-28 07:30)
DX: R93.89 Abnormal findings on diagnostic imaging of other specified body structures (principal); C54.1 Malignant neoplasm of endometrium; E03.9 Hypothyroidism, unspecified; E78.5 Hyperlipidemia, unspecified; E11.22 Type 2 diabetes mellitus with diabetic chronic kidney disease; I12.9 Hypertensive chronic kidney disease with stage 1 through stage 4 chronic kidney disease, or unspecified chronic kidney disease; N18.9 Chronic kidney disease, unspecified; E66.01 Morbid (severe) obesity due to excess calories; Z68.43 Body mass index [BMI] 50.0-59.9, adult; Z79.85 Long-term (current) use of injectable non-insulin antidiabetic drugs; Z79.4 Long term (current) use of insulin; Z98.890 Other specified postprocedural states; Z90.49 Acquired absence of other specified parts of digestive tract; Z86.79 Personal history of other diseases of the circulatory system
CPT/HCPCS: 58558; 82948; 88305; 88342; A9270; J2003; J2250; J2405; J2704; J3010; J7120